=== PATIENT | female | born 1965 | race Caucasian/White ===

== ENCOUNTER 2020-06-25 13:49 | Emergency (ER) | payer OTHER, SELFPAY ==
--- NOTE | ~2020-06-25 | XR_ITS ---
EXAMINATION: XR ANKLE, RIGHT XR FOOT, RIGHT CLINICAL INFORMATION: Pain ankle and foot COMPARISON: None TECHNIQUE: 2 views right ankle, 2 views right foot, and a combined lateral view of the ankle and foot are obtained for a total of 5 views. FINDINGS: The malleoli are intact and the ankle mortise is symmetric. The talar dome shows no osteochondral lesion. The tibiotalar joint shows no narrowing or erosive change. No visible ankle capsular effusion. The retrocalcaneal recess is preserved. The subtalar joint appears normal. The midfoot is unremarkable with no fracture or dislocation. There is hallux valgus and degenerative changes involving the first MTP with medial bunion. Forefoot shows no fracture. The toes are flexed and overlapping on the lateral view, difficult to assess for subluxation. There are variable degenerative changes PIP and DIP joints. XR/XR foot RT 2V IMPRESSION: 1. No ankle fracture or dislocation. No visible capsular effusion. 2. Hallux valgus and bunion first MTP. 3. Degenerative changes PIP and DIP joints. Toes flexed and overlapping on lateral view, difficult to assess for subluxation. Recommend correlation with symptoms and clinical exam.
--- NOTE | ~2020-06-25 | XR_ITS ---
EXAMINATION: XR ANKLE, RIGHT XR FOOT, RIGHT CLINICAL INFORMATION: Pain ankle and foot COMPARISON: None TECHNIQUE: 2 views right ankle, 2 views right foot, and a combined lateral view of the ankle and foot are obtained for a total of 5 views. FINDINGS: The malleoli are intact and the ankle mortise is symmetric. The talar dome shows no osteochondral lesion. The tibiotalar joint shows no narrowing or erosive change. No visible ankle capsular effusion. The retrocalcaneal recess is preserved. The subtalar joint appears normal. The midfoot is unremarkable with no fracture or dislocation. There is hallux valgus and degenerative changes involving the first MTP with medial bunion. Forefoot shows no fracture. The toes are flexed and overlapping on the lateral view, difficult to assess for subluxation. There are variable degenerative changes PIP and DIP joints. XR/XR ankle RT 2V IMPRESSION: 1. No ankle fracture or dislocation. No visible capsular effusion. 2. Hallux valgus and bunion first MTP. 3. Degenerative changes PIP and DIP joints. Toes flexed and overlapping on lateral view, difficult to assess for subluxation. Recommend correlation with symptoms and clinical exam.
[2020-06-25 14:16] VITALS: BP 153/83; PULSE 80; RESP 18; TEMP 36.5; O2SAT 100; BMI 24.2
[2020-06-25] MEDS: Acetaminophen 325 MG TABLET 650 MG PO (15:18)
--- NOTE | 2020-06-25 15:24 | PC.NURSE ---
EVGENY WRAP APPLIED TO RIGHT ANKLE/FOOT. PT TOLERATING WELL. PT REFUSING CRUTCHES AT THIS TIME.
--- NOTE | 2020-06-25 15:52 | ED.LOWEXIN ---
HPI - Extremity Injury (Lower) General Chief Complaint: Extremity Injury, Lower Stated Complaint: RFOOT INJ Time Seen by Provider: 06/25/20 14:27 Source: patient Mode of arrival: ambulatory Limitations: no limitations History of Present Illness HPI Narrative: Patient presents to ED for right foot injury. Patient states she stood up from the couch and twisted her right ankle. Patient denies falling to the ground or hitting head. Patient denies any blunt trauma to right lower extremity Related Data Previous Rx's Medication Instructions Recorded naproxen 500 mg PO BID PRN #20 tab 06/25/20 Allergies Allergy/AdvReac Type Severity Reaction Status Date / Time codeine Allergy Itching Verified 06/25/20 14:16 erythromycin base Allergy Rash Verified 06/25/20 14:16 Latex, Natural Rubber Allergy Rash Verified 06/25/20 14:16 Penicillins Allergy Rash Verified 06/25/20 14:16 Review of Systems Review of Systems: Yes all other systems are reviewed and are negative Constitutional: Constitutional: Reports as per HPI and Reports no additional constitutional complaints Eyes: Eyes: Reports as per HPI and Reports no additional eye complaints ENT: Reports system reviewed and no additional complaints, except as documented and Reports as per HPI Cardiovascular: Cardiovascular: Reports as per HPI and Reports no additional cardiovascular complaints Respiratory: Respiratory: Reports as per HPI and Reports no additional respiratory complaints Gastrointestinal: Gastrointestinal: Reports as per HPI and Reports no additional gastrointestinal complaints Genitourinary: Genitourinary: Reports no additional female genitourinary complaints and Reports as per HPI Musculoskeletal: Musculoskeletal: Reports no additional musculoskeletal complaints, Reports as per HPI and Reports arthralgias (Right ankle pain) Neurologic: Reports system reviewed and no additional complaints, except as documented and Reports as per HPI Psychiatric: Psychiatric: Reports no additional psychiatric complaints and Reports as per HPI [facility] Past Medical History Medical History (Updated 06/25/20 @ 15:56 by SHON Castillo) Asthma HTN (hypertension) Migraines Social History Social History Advance Directives: No Advance Directives Information Provided: Yes Physical Exam Vital Signs: Vital Signs: Last Vital Signs Temp 97.7 F 06/25/20 14:16 Pulse 80 06/25/20 14:16 Resp 18 06/25/20 15:58 BP 153/83 H 06/25/20 14:16 Pulse Ox 100 06/25/20 14:16 Body Mass Index 24.2 Const: General: cooperative, healthy appearing, comfortable, no acute distress, well developed, alert and awake Orientation/consciousness: patient oriented x3 HENMT: Head: Yes normal to inspection, Yes No palpable skull fracture present, Yes normocephalic and Yes atraumatic Eyes: General: appearance normal, both eyes and all related structures Neck: Neck: Yes normal visual inspection, Yes full ROM, Yes no lymphadenopathy, Yes no meningeal signs, Yes trachea midline, Yes supple and No tender Chest: Chest palpation & inspection: normal inspection of the chest and normal palpation of entire chest wall Resp: Effort & Inspection: normal respiratory effort and able to speak in complete sentences Cardio: Jugular venous distension: no JVD Heart sounds: S1 normal heart sound present and S2 normal heart sound present GI: Inspection: Yes normal to inspection and No abdominal wall ecchymosis Palpation (GI): Soft to palpation, not firm, nontender, no guarding and not rigid : General: No CVA tenderness Back/Spine/Pelvis: Back: no CVA tenderness, No CVA tenderness and No back tenderness Skin: General skin exam: no rashes or lesions noted and elasticity normal Neuro: General: patient oriented x3, no meningeal signs and CN's II-XI intact bilaterally Cranial nerves: Yes CN's II-XII intact bilaterally Extrem: Other: Right lower extremity pain; right ankle pain on palpation. Negative for deformities. Pedal pulses intact. Achilles is intact. Patient able to walk on foot due to pain. Psych: Appearance: grossly normal, well kempt and not disheveled Course Course Course Narrative: Patient will be sent for right foot/ankle x-ray. Reevaluation(s) Reevaluation #1: Ankle/foot x-ray negative for fractures. Patient requested Tylenol. Patient placed in Skyler wrap and crutches MDM - Extremity Injury (Lower) MDM Narrative Medical decision making narrative: ankle sprain Discharge Plan Discharge Clinical Impression: Ankle sprain and strain Patient Disposition: Home, Self-Care Instructions: Ankle Sprain (ED) Additional Instructions: Return to the ED immediately swelling of lower extremity, bluish discoloration of toes, calf pain, redness, blistering of legs, chest pain, shortness of breath, fever, chills, paralysis, or any other concerning symptoms. Please follow-up with PCP Prescriptions: New naproxen 500 mg tablet 500 mg PO BID PRN (Reason: pain) Qty: 20 RF: 0 Stand Alone Forms: Work/School Release Interventions: ED Discharge Assessment Last Done: 06/25/20 16:03 Discharge Date/Time: 06/25/20 16:04 Print Language: Latvian
[2020-06-25 15:58] VITALS: RESP 18
== END 2020-06-25 16:04 | disposition home or self-care (01) ==
PROVIDERS: Emergency Provider Emergency Medicine; PCP Family Medicine
DX: S93.401A Sprain of unspecified ligament of right ankle, initial encounter (principal); M25.571 Pain in right ankle and joints of right foot; I10 Essential (primary) hypertension; W50.2XXA Accidental twist by another person, initial encounter; Y93.9 Activity, unspecified; Y92.009 Unspecified place in unspecified non-institutional (private) residence as the place of occurrence of the external cause; Y99.9 Unspecified external cause status; Z79.899 Other long term (current) drug therapy
CPT/HCPCS: 73600; 73620; 99283

== ENCOUNTER 2022-10-08 23:52 | Emergency (ER) | payer MEDICAID, SELFPAY ==
[2022-10-09 00:07] VITALS: BP 177/97; PULSE 95; RESP 18; TEMP 37.1; O2SAT 95; BMI 20.4
== END 2022-10-09 06:38 | disposition home or self-care (01) ==
PROVIDERS: Emergency Provider Internal Medicine
DX: S61.250A Open bite of right index finger without damage to nail, initial encounter (principal); W55.51XA Bitten by raccoon, initial encounter; Y93.89 Activity, other specified; Y92.038 Other place in apartment as the place of occurrence of the external cause; Y99.9 Unspecified external cause status; Z20.3 Contact with and (suspected) exposure to rabies
CPT/HCPCS: 90471; 90472; 96372; 99281; 99284

== ENCOUNTER 2023-01-07 12:51 | Emergency (ER) | payer MEDICAID, SELFPAY ==
--- NOTE | ~2023-01-07 | XR_ITS ---
EXAMINATION: XR KNEE, LEFT CLINICAL INFORMATION: Pain after falling COMPARISON: None available. TECHNIQUE: Four views of the left knee. FINDINGS: There is medial and lateral joint space meniscal calcification. No fracture, dislocation or destructive process. No joint effusion. XR/XR knee LT 3V IMPRESSION: Degenerative change noted. No fracture.
--- NOTE | ~2023-01-07 | CT_ITS ---
EXAMINATION: CT SCAN OF THE LEFT LOWER LEG WITHOUT CONTRAST CLINICAL INFORMATION: Evaluate for distal tibia fracture. Fall. COMPARISON: X-ray of the left ankle 01/07/2023. TECHNIQUE: CT scan of the left lower extremity/tibia-fibula was performed without contrast with reconstruction imaging performed at the acquisition workstation. This CT examination was performed using dose optimization techniques as appropriate, variously including the following: *Automated exposure control *Adjustment of mA and/or kV according to patient size (this includes techniques or standardized protocols for targeted exams where dose is matched to indication/reason for exam; i.e. extremities or head) *Use of iterative reconstruction technique FINDINGS: FIBULA: There is a nondisplaced oblique fracture involving the distal 3.5 cm of the fibula extending proximally from the level of the mortise. TIBIA: There is a small minimally displaced and rotated intra-articular fragment arising from the anterolateral tibial plafond extending to the articular surface. The fragment measures 9 mm craniocaudal, 6 mm AP and 3 mm transverse. The fragment is displaced approximately 2 mm anterolaterally. No additional fractures. There is stranding in the subcutaneous soft tissues of the upper and lower leg and ankle compatible with edema. There is some image degrading motion artifact in the upper portion of the lower leg. There is chondrocalcinosis in the knee. There is atrophy and fatty infiltration of the medial head of the gastrocnemius. CT/CT lower leg LT wo IV con IMPRESSION: 1. Nondisplaced oblique fracture of the distal fibula. 2. Small minimally displaced intra-articular fracture of the anterolateral tibial plafond. 3. Atrophy and fatty infiltration of the medial head of the gastrocnemius.
--- NOTE | ~2023-01-07 | XR_ITS ---
EXAMINATION: XR ANKLE, RIGHT CLINICAL INFORMATION: Fall. Injury. Pain. COMPARISON: None available. TECHNIQUE: AP, lateral, and mortise views of the right ankle. FINDINGS: The bone mineralization is normal. There is no fracture. The joint spaces are maintained. There is mild to moderate anterolateral soft tissue swelling. XR/XR ankle RT 2V IMPRESSION: No acute osseous abnormality. Mild to moderate anterolateral soft tissue swelling.
--- NOTE | ~2023-01-07 | XR_ITS ---
EXAMINATION: XR FOOT, RIGHT CLINICAL INFORMATION: Pain; question fracture. COMPARISON: Right foot radiographs dated 06/25/2020. TECHNIQUE: AP, lateral, and oblique views of the right foot. FINDINGS: Bony alignment and mineralization are normal. There is an oblique, mildly displaced fracture noted of the distal shaft of the right fifth metatarsal bone. No dislocation or right ankle joint effusion is seen. Boehler's angle is normal. There is no calcaneal spur. There is slight bunion formation of the first metatarsal head. There is degenerative change of the proximal and distal interphalangeal joints of the second toe. No abnormal bone erosion is seen. There is mild soft tissue swelling of the lateral forefoot, adjacent to the fracture. No soft tissue gas or foreign body is seen. XR/XR foot RT 2V IMPRESSION: A mildly displaced fracture is seen of the distal shaft of the right fifth metatarsal bone.
--- NOTE | ~2023-01-07 | XR_ITS ---
EXAMINATION: XR ANKLE, LEFT CLINICAL INFORMATION: Fall. Pain. COMPARISON: None available. TECHNIQUE: AP, lateral, and mortise views of the left ankle. FINDINGS: The bone mineralization is within normal limits. There is an apparent lucency through the lateral fibular notch of the distal tibia. There is mild to moderate lateral soft tissue swelling. XR/XR ankle LT 2V IMPRESSION: There is a lucency seen through the lateral distal tibial in the region of the fibular notch only seen on one image. An undisplaced fracture in this region is a consideration. CT scan may be helpful. There is lateral soft tissue swelling.
[2023-01-07 13:20] VITALS: BP 160/64; PULSE 85; RESP 16; TEMP 36.6; O2SAT 98; BMI 21.8
--- NOTE | 2023-01-07 13:21 | ED_ITS ---
HPI - Extremity Injury (Lower) General Chief Complaint: Extremity Injury, Lower Stated Complaint: R/L Ankle Injury S/P Fall 01/05/23 Time Seen by Provider: 01/07/23 13:35 Source: patient Mode of arrival: ambulatory Limitations: no limitations History of Present Illness HPI Narrative: 57 yol female with pmh of HTN and migraines presetns to the ED for bilateral ankle pain and left knee pain after falling and twisting both ankles. patient fell down stairs unto her back and twisted bilateral lower extremities. Patient denies hitting head, loss of consciousness, chest pain, shortness of breath, abdominal pain, rectal bleeding, dizziness since fall periord. patient states denies being on any blood thinders. Related Data Home Medications Medication Instructions Recorded Confirmed aripiprazole 10 mg tablet 10 mg PO DAILY 01/07/23 01/07/23 aripiprazole 2 mg tablet 2 mg PO DAILY 01/07/23 01/07/23 nzssbwwqzf-qyzbxevvasmpk-levgulyy 1 tab PO Q4H PRN Headache 01/07/23 01/07/23 50 mg-325 mg-40 mg tablet cetirizine 10 mg tablet 10 mg PO DAILY 01/07/23 01/07/23 dextroamphetamine-amphetamine 20 1 tab PO BID 01/07/23 01/07/23 mg tablet erenumab-aooe 70 mg/mL 70 mg subcut QMONTH 01/07/23 01/07/23 subcutaneous auto-injector (Aimovig Autoinjector) gabapentin 800 mg tablet 2,400 mg PO BID 01/07/23 01/07/23 hydrochlorothiazide 25 mg tablet 25 mg PO DAILY 01/07/23 01/07/23 ibuprofen 600 mg tablet 600 mg PO TID 01/07/23 01/07/23 lamotrigine 200 mg tablet 600 mg PO BEDTIME 01/07/23 01/07/23 lorazepam 0.5 mg tablet 0.5 mg PO BEDTIME PRN Anxiety 01/07/23 01/07/23 methylphenidate HCl 20 mg tablet 20 mg PO BID 01/07/23 01/07/23 minocycline 50 mg capsule 50 mg PO BID 01/07/23 01/07/23 montelukast 10 mg tablet 10 mg PO DAILY 01/07/23 01/07/23 omeprazole 40 mg capsule,delayed 40 mg PO DAILY 01/07/23 01/07/23 release ondansetron HCl 8 mg tablet 8 mg PO Q8H PRN Nausea And Vomiting 01/07/23 01/07/23 prochlorperazine maleate 10 mg 10 mg PO Q6H PRN migraine 01/07/23 01/07/23 tablet sumatriptan succinate 100 mg tablet 100 mg PO NEEDED 01/07/23 01/07/23 sumatriptan succinate 6 mg/0.5 mL 6 mg subcut NEEDED 01/07/23 01/07/23 subcutaneous pen injector topiramate 100 mg tablet 200 mg PO BID 01/07/23 01/07/23 trazodone 150 mg tablet 150 - 300 mg PO BEDTIME PRN 01/07/23 01/07/23 Insomnia venlafaxine 150 mg 300 mg PO DAILY 01/07/23 01/07/23 capsule,extended release 24 hr Previous Rx's Medication Instructions Recorded naproxen 500 mg tablet 500 mg PO BID PRN pain #20 tabs 06/25/20 ketorolac 10 mg tablet 10 mg PO QID PRN pain 5 days #20 01/07/23 tabs Allergies Allergy/AdvReac Type Severity Reaction Status Date / Time codeine Allergy Itching Verified 01/07/23 13:20 erythromycin base Allergy Rash Verified 01/07/23 13:20 Latex, Natural Rubber Allergy Rash Verified 01/07/23 13:20 Penicillins Allergy Rash Verified 01/07/23 13:20 Review of Systems 2 Review of Systems: Fall with bilateral lower extremitey ankle pain and left kne pain after fall Yes all other systems are reviewed and are negative [facility] Past Medical History Medical History (Updated 01/07/23 @ 22:06 by Gladys Moilna CNP) Migraines Asthma HTN (hypertension) Social History Smoked in Last 30 Days: No Advance Directives: No Advance Directives Information Provided: No Physical Exam 2 Vital Signs: Vital Signs: Last Vital Signs Temp 98.3 F 01/07/23 22:34 Pulse 73 01/07/23 22:34 Resp 18 01/07/23 22:34 BP 186/70 H 01/07/23 22:34 Pulse Ox 96 01/07/23 22:34 O2 Del Method Room Air 01/07/23 22:34 BMI result Body Mass Index 21.8 Const: General: cooperative, healthy appearing, comfortable, no acute distress, well developed, alert, awake and Physically active O rientation/consciousness: oriented to person, oriented to place, oriented to time and patient oriented x3 HEENT: Head: Yes normal to inspection, Yes No palpable skull fracture present, Yes normocephalic and Yes atraumatic Ears: hearing grossly normal bilaterally, external ears normal, TM's normal bilaterally, TM normal on the right, TM normal on the left, EAC's normal, mastoids normal and no periauricular adenopathy Throat: Yes posterior oropharynx normal, Yes tonsils normal and Yes uvula midline Eyes: General: appearance normal, both eyes and all related structures Neck: Neck: Yes normal visual inspection, Yes full ROM, Yes no lymphadenopathy, Yes no meningeal signs, Yes trachea midline, Yes supple, No anterior neck swelling and No tender Chest: Chest palpation & inspection: normal inspection of the chest and normal palpation of entire chest wall Resp: Effort & Inspection: normal respiratory effort and able to speak in complete sentences Auscultation: clear to auscultation bilaterally Cardio: Jugular venous distension: no JVD Heart sounds: S1 normal heart sound present and S2 normal heart sound present GI: Inspection: Yes normal to inspection Palpation (GI): Soft to palpation, not firm, nontender, no guarding and not rigid : General: No CVA tenderness and Yes no CVA tenderness Back/Spine/Pelvis: Back: no CVA tenderness, No CVA tenderness and No back tenderness Skin: General skin exam: no rashes or lesions noted, elasticity normal and turgor normal Neuro: General: oriented to person, oriented to place, oriented to time, patient oriented x3, gait normal, tone normal, moves all extremities, Normal light touch and pain sensation, no meningeal signs, no focal motor deficits, CN's II-XI intact bilaterally and normal sensation to monofilament Extrem: Knee images: 1. positive for tenderness on palpation. Negative for crepitus, ecchymosis, deformity, or elasticity. Motor neurovascular exam intact. Ankle/foot/toe images: 1. positive for tenderness on palpation. Positive for ecchymosis. Negative for crepitus or obvious deformity. Vascular/ neuro exam intact. Motor exam intact but limited due to pain 2. positive for tenderness on palpation . Positive for ecchymosis. Negative for crepitus or obvious deformity. Vascular/ neuro exam intact. Motor exam intact but limited due to pain Psych: Appearance: grossly normal, well kempt and not disheveled Course Course Course Narrative: This is a rapid medical exam. Defer additional HPI, ROS, PE to primary provider. 57yo female w/ history of migraines, asthma here after slip and fall down 4 stairs on Thursday-here with left knee pain, b/l ankle pain. No head strike or LOC. NO AC therapy. Will obtain x-rays VSS Reevaluation(s) Reevaluation #1: XR/XR foot RT 2V IMPRESSION: A mildly displaced fracture is seen of the distal shaft of the right fifth metatarsal bone. Patient placed in a posterior splint to the RIGHT lower extremity, this coupled with her left lower extremity fracture and splinting, nonweightbearing status at this time. She is placed in position observation so that case management/physical therapy evaluation can ensue, likely will require placement at short-term rehab and follow up with Orthopedics. She was placed in a posterior short-leg splint on the right and remained neurovascularly intact distally after application. Medications Administered Discontinued Medications Generic Name Dose Route Start Last Admin Trade Name Freq PRN Reason Stop Dose Admin Ketorolac Tromethamine 30 mg 01/07/23 18:56 01/07/23 18:59 Ketorolac Tromethamine 30 Mg/Ml Vial IM 01/07/23 18:57 30 mg ONCE ONE Administration Morphine Sulfate 15 mg 01/07/23 23:38 01/07/23 23:53 Morphine Sulfate Immed Release 15 Mg Tablet PO 01/07/23 23:39 15 mg ONCE ONE Administration Medical Decision Making Medical Decision Making [facility] Narrative: 57-year-old female with bilateral ankle pain and left foot pain after falling down stairs on Thursday. Patient has been walking for the past 3 days. Patient denies hitting head or loss of consciousness. Patient denies any chest pain abdominal pain flank pain weakness dizziness bloody urine, blood in stool, vomiting blood since fall. Whole-body examined. Patient left lower extremity positive for distal tibial a nondisplaced oblique fracture and small right tibial fracture. Patient placed in posterior splint. Neurovascular exam intact after splint placement. Case discussed with orthopedic PA tomorrow who states patient could be discharged. Right ankle negative for fracture waiting for right foot x-ray. Signed out to SHERI Graham Differential Diagnosis Differential Diagnoses: The differential diagnosis associated with the presentation includes ( Ankle fracture foot fracture, knee dislocation knee fracture.) Admission/Observation Consideration of admission/observation: Escalation of care including admission/observation considered Consult Healthcare Provider Management of the patient was discussed with: [employer] Worker ( [facility]) Independent Interpretation I performed an independent interpretation of an: Plain X-Ray and CT Scan Radiology Impression Discussion of test interpretation with radiology: I have reviewed the radiologist's reading. Procedures Orthopedic Splinting/Casting Injury #1: Side: right Lower Extremity Injury Location: foot Lower Extremity Immobilizer: posterior splint Injury #2: Side: left Lower Extremity Injury Location: lower leg and ankle Lower Extremity Immobilizer: posterior splint Discharge Plan Discharge Clinical Impression: Fracture of left leg Fracture of 5th metatarsal Qualifiers: Encounter type: initial encounter Fracture type: closed Laterality: right Patient Disposition: Still a Patient Instructions: Leg Fracture (ED) Additional Instructions: you need to follow-up with orthopedic surgeon. Return to the ED for worsening pain, purple blue black discoloration of toes, leg swelling, calf pain, chest pain, shortness of breath, or any other concerning symptoms. Do not take any other NSAIDS while taking Ketorolac. Prescriptions: New ketorolac 10 mg tablet 10 mg PO QID PRN (Reason: pain) 5 Days Qty: 20 0RF Rx Instructions: Received 30mg IM toradol in the ED No Action naproxen 500 mg tablet 500 mg PO BID PRN (Reason: pain) Qty: 20 0RF lamotrigine 200 mg tablet 600 mg PO BEDTIME cetirizine 10 mg tablet 10 mg PO DAILY sumatriptan succinate 100 mg tablet 100 mg PO NEEDED methylphenidate HCl 20 mg tablet 20 mg PO BID ondansetron HCl 8 mg tablet 8 mg PO Q8H PRN (Reason: Nausea And Vomiting) venlafaxine 150 mg capsule,extended release 24hr 300 mg PO DAILY prochlorperazine maleate 10 mg tablet 10 mg PO Q6H PRN (Reason: migraine) omeprazole 40 mg capsule,delayed release(DR/EC) 40 mg PO DAILY kkurmtenvu-ympjagnasybax-xebu 50-325-40 mg tablet 1 tab PO Q4H PRN (Reason: Headache) lorazepam 0.5 mg tablet 0.5 mg PO BEDTIME PRN (Reason: Anxiety) gabapentin 800 mg tablet 2,400 mg PO BID trazodone 150 mg tablet 150 - 300 mg PO BEDTIME PRN (Reason: Insomnia) dextroamphetamine-amphetamine 20 mg tablet 1 tab PO BID minocycline 50 mg capsule 50 mg PO BID montelukast 10 mg tablet 10 mg PO DAILY hydrochlorothiazide 25 mg tablet 25 mg PO DAILY ibuprofen 600 mg tablet 600 mg PO TID topiramate 100 mg tablet 200 mg PO BID aripiprazole 10 mg tablet 10 mg PO DAILY aripiprazole 2 mg tablet 2 mg PO DAILY Aimovig Autoinjector 70 mg/mL auto-injector 70 mg subcut QMONTH sumatriptan succinate 6 mg/0.5 mL pen injector 6 mg subcut NEEDED Referrals: [facility] [Provider Group] (LEg fracture) Print Language: Maltese
[2023-01-07 17:17] VITALS: BP 159/63; PULSE 79; RESP 18; TEMP 37.3; O2SAT 97
[2023-01-07] MEDS: Ketorolac Tromethamine 30 MG/ML VIAL IM (18:59)
--- NOTE | 2023-01-07 19:46 | PC.NURSE ---
splint applied by PA
[2023-01-07 22:34] VITALS: BP 186/70; PULSE 73; RESP 18; TEMP 36.8; O2SAT 96
--- NOTE | 2023-01-07 22:38 | MHC.EDTECH ---
Patient bed changed and patient used commode
--- NOTE | 2023-01-07 23:01 | PC.NURSE ---
Med req completed
[2023-01-07] MEDS: Morphine Sulfate Immed Release 15 MG TABLET PO (23:53)
--- NOTE | 2023-01-07 23:54 | PC.NURSE ---
Right foot, lower leg splint applied by MLP. Pt tolerated well.
--- NOTE | 2023-01-08 00:45 | PC.NURSE ---
Assumed care of patient at 00:25. Patient is alert and oriented x5. Patient is able to make her needs known. Patient c/o pain in left lower leg and right foot 8/10 at present. Patient transferred into a hospital bed, purewick applied. Patient oriented to room, call hermosillo placed within patient's reach. Plan of care ongoing.
[2023-01-08] MEDS: Morphine Sulfate Immed Release 15 MG TABLET PO ×3 (02:44→15:48)
[2023-01-08 08:17] VITALS: BP 186/84; PULSE 70; RESP 16; TEMP 36.7; O2SAT 96
--- NOTE | 2023-01-08 12:56 | PC.NURSE ---
PT TO BE SEEN TOMORROW BY PHYS THERAPY. PHARMACY CONTACTED FOR HOME MED REVIEW.
--- NOTE | 2023-01-08 13:38 | PHA.MEDREC ---
Pharmacy Consult ? Medication Reconciliation Called [facility] and spoke with RN. She asked patient regarding HCTZ and Minocycline . Patient states she is currently taking both meds. Pharmacy has completed the medication reconciliation.
[2023-01-08 14:00] VITALS: BP 218/92; PULSE 76; RESP 18; TEMP 36.7; O2SAT 96
--- NOTE | 2023-01-08 14:16 | MHC.CM.PN ---
Patient in ED over, will need a PT eval for placement. PT is not available today due to the holiday. Patient remains in overflow, room 4.
[2023-01-08] MEDS: Ibuprofen 600 MG TABLET PO ×2 (14:33→21:32)
[2023-01-08 19:58] VITALS: BP 193/86; PULSE 68; RESP 14; TEMP 36.2; O2SAT 97
[2023-01-08] MEDS: Gabapentin 600 MG TABLET 2400 MG PO (20:18)
[2023-01-08] MEDS: Topiramate 100 MG TABLET 200 MG PO (20:19)
[2023-01-08] MEDS: LORazepam 0.5 MG TABLET PO (20:19)
--- NOTE | 2023-01-08 21:01 | PC.NURSE ---
Acquired care at 1930. Pt BP was 193/86. ED provider notified via tiger text. No new order placed.
[2023-01-08] MEDS: traZODone HCL 50 MG TABLET 150 MG PO (21:32)
[2023-01-08] MEDS: hydroCHLOROthiazide 25 MG TABLET PO (21:32)
[2023-01-08] MEDS: Ondansetron ODT 8 MG TAB.RAPDIS TRANSLINGU (22:35)
[2023-01-08 22:47] VITALS: BP 201/88; BP 207/77; PULSE 68; RESP 20; O2SAT 98
[2023-01-09] MEDS: Omeprazole 40 MG CAPSULE.DR PO (05:33)
[2023-01-09 05:46] VITALS: BP 144/89; PULSE 85; RESP 18; TEMP 36.8; O2SAT 95
[2023-01-09] MEDS: Ibuprofen 600 MG TABLET PO ×3 (09:25→21:36)
[2023-01-09] MEDS: Gabapentin 600 MG TABLET 2400 MG PO ×2 (09:25→21:37)
[2023-01-09] MEDS: Venlafaxine HCl ER 150 MG CAP.ER.24H 300 MG PO (09:26)
[2023-01-09] MEDS: Topiramate 100 MG TABLET 200 MG PO ×2 (09:27→21:34)
[2023-01-09] MEDS: Montelukast Sodium 10 MG TABLET PO (09:27)
[2023-01-09] MEDS: hydroCHLOROthiazide 25 MG TABLET PO (09:27)
[2023-01-09] MEDS: Loratadine 10 MG TABLET PO (09:27)
[2023-01-09 09:29] VITALS: BP 172/95; PULSE 100; O2SAT 95
[2023-01-09] MEDS: Methylphenidate HCl 10 MG TABLET 20 MG PO (10:25)
[2023-01-09] MEDS: ARIPiprazole 10 MG TABLET PO (10:26)
[2023-01-09] MEDS: ARIPiprazole 2 MG TABLET PO (10:26)
[2023-01-09] MEDS: Amphetamine Mixed Salts 20 MG TABLET PO (11:34)
[2023-01-09 13:28] VITALS: BP 172/95; PULSE 100; O2SAT 95
--- NOTE | 2023-01-09 13:28 | PC.NURSE ---
physical therapy met with patient for daily PT, physical therapist spoke with SHON Morillo (ortho), request to change patient from splint to walking boot for weight bearing PT. Meredith, SELIN placing boot at this time
--- NOTE | 2023-01-09 14:20 | MHC.CM.PN ---
Received CM consult and met with patient at bedside. Patient from home with roommate, who is frequently not home. 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 Has nebulizer. PCP: Vicente Tolentino HCP: CM assisted with completing, patient named son John as agent, phone # [phone] DP: PT recommended acute rehab, patient initially declined but is now agreeable, referrals placed, will need BLS. CM will continue to follow.
[2023-01-09 20:00] VITALS: BP 192/96; PULSE 100; RESP 16; TEMP 36.8; O2SAT 98
[2023-01-09 20:09] LABS: COVID-19 Test Negative (Negative); IDNOW Serial# 9DB6401D
[2023-01-09] MEDS: lamoTRIgine 100 MG TABLET 600 MG PO (21:34)
--- NOTE | 2023-01-09 21:39 | PC.NURSE ---
This verse writer assumed care of this Pt at 1900. Pt A&Ox4, reports bilateral leg pain, with right leg being the worse. Pt medicated per MAR, refused Ritalin and adderal, states I take those during the day and I am just relaxing . Pt ambulating independently with walker.
[2023-01-10] MEDS: traZODone HCL 50 MG TABLET 150 MG PO (00:22)
[2023-01-10] MEDS: Morphine Sulfate Immed Release 15 MG TABLET PO ×3 (00:22→21:05)
--- NOTE | 2023-01-10 03:20 | PC.NURSE ---
Pt appears to be sleeping at this time, equal, non labored respirations, no apparent distress.
[2023-01-10 05:58] VITALS: BP 101/57; PULSE 73; RESP 16; TEMP 36.1; O2SAT 96
--- NOTE | 2023-01-10 05:58 | MHC.EDTECH ---
Patient slept all night ,up to bedside commode once ,void and back to bed ,vitals taken .
[2023-01-10] MEDS: Omeprazole 40 MG CAPSULE.DR PO (06:33)
[2023-01-10] MEDS: Ibuprofen 600 MG TABLET PO ×3 (08:32→21:04)
[2023-01-10] MEDS: Venlafaxine HCl ER 150 MG CAP.ER.24H 300 MG PO (08:32)
[2023-01-10] MEDS: Topiramate 100 MG TABLET 200 MG PO ×2 (08:33→21:23)
[2023-01-10] MEDS: Loratadine 10 MG TABLET PO (08:33)
[2023-01-10] MEDS: Montelukast Sodium 10 MG TABLET PO (08:33)
[2023-01-10] MEDS: Amphetamine Mixed Salts 20 MG TABLET PO ×2 (08:33→21:23)
[2023-01-10] MEDS: hydroCHLOROthiazide 25 MG TABLET PO (08:33)
[2023-01-10] MEDS: Methylphenidate HCl 10 MG TABLET 20 MG PO ×2 (08:33→21:04)
[2023-01-10] MEDS: Gabapentin 600 MG TABLET 2400 MG PO ×2 (08:33→21:03)
[2023-01-10] MEDS: ARIPiprazole 10 MG TABLET PO (10:23)
[2023-01-10] MEDS: ARIPiprazole 2 MG TABLET PO (10:23)
--- NOTE | 2023-01-10 13:20 | PC.NURSE ---
Patient alert and oriented x3. Patient reports bilateral lower leg pain 9/10 R>L. L leg splinted with +CMS, per patient minimal sensation but has been like that since incident, 2+ edema noted and +doppler on L foot. R leg mild swelling noted around ankle. No cast while in bed, walking boot at bedside. Pain controlled with scheduled meds and morphine PRN. OOB to commode. VSS. All needs met.
[2023-01-10 13:55] VITALS: BP 120/61; PULSE 77; RESP 16; TEMP 36.8; O2SAT 96
--- NOTE | 2023-01-10 15:40 | MHC.CM.ED ---
Patient remains in ER overflow. Aware acute rehab is not able to offer a bed. Patient agreeable to STR. Facility choices: 1) [facility] 2) [facility] 3) [facility]. Referral made via [employer]. Will need ins auth which would not be able to be obtained before Thursday. Continue to monitor for d/c needs.
[2023-01-10 15:57] VITALS: BP 121/63; PULSE 89; RESP 16; TEMP 36.8; O2SAT 98
--- NOTE | 2023-01-10 16:01 | MHC.EDTECH ---
This pct assumed care of pt at 1500 ,vitals taken ,Pt in great sprits we talk for awhile.
--- NOTE | 2023-01-10 19:06 | MHC.EDTECH ---
Patient did not void since i got here at 1500 ,bladder scan done at 1900 ,Pt had 248 ml ,RN Hesham aware .
[2023-01-10 20:00] VITALS: BP 108/56; PULSE 85; RESP 18; TEMP 36.7; O2SAT 97
--- NOTE | 2023-01-10 21:03 | MHC.EDTECH ---
1999 ,rounding done ,vitals taken ,pt use bedside commode ,void was empty ,no bowel movement ,Patient off offer to wash up ,towel and clean gown and pants given ,snack offer ,pt had a turkey sandwich with ice water ,Call hermosillo within Pt reach .
[2023-01-10] MEDS: lamoTRIgine 100 MG TABLET 600 MG PO (21:18)
--- NOTE | 2023-01-10 22:20 | PC.NURSE ---
pt assessed after medications Per MAR, pt reported tolerable 4/10 pain, will cont to monitor
[2023-01-11] MEDS: Omeprazole 40 MG CAPSULE.DR PO (05:39)
[2023-01-11] MEDS: Morphine Sulfate Immed Release 15 MG TABLET PO ×3 (05:39→21:50)
[2023-01-11 06:00] VITALS: BP 112/55; PULSE 76; RESP 16; TEMP 37.1; O2SAT 92
--- NOTE | 2023-01-11 06:18 | PC.NURSE ---
pt assessed, reported 10/10 pain, medicated pt per MAR for pain. pt observed 40 minutes, pt observed sleeping
--- NOTE | 2023-01-11 07:00 | PC.NURSE ---
Assumed care of patient at this time.
[2023-01-11] MEDS: Venlafaxine HCl ER 150 MG CAP.ER.24H 300 MG PO (08:53)
[2023-01-11] MEDS: ARIPiprazole 10 MG TABLET PO (08:53)
[2023-01-11] MEDS: Gabapentin 600 MG TABLET 2400 MG PO ×2 (08:53→21:49)
[2023-01-11] MEDS: Ibuprofen 600 MG TABLET PO ×3 (08:53→21:50)
[2023-01-11] MEDS: Montelukast Sodium 10 MG TABLET PO (08:53)
[2023-01-11] MEDS: ARIPiprazole 2 MG TABLET PO (08:53)
[2023-01-11] MEDS: Methylphenidate HCl 10 MG TABLET 20 MG PO (08:53)
[2023-01-11] MEDS: Topiramate 100 MG TABLET 200 MG PO ×2 (08:53→21:50)
[2023-01-11] MEDS: Loratadine 10 MG TABLET PO (08:53)
[2023-01-11] MEDS: Amphetamine Mixed Salts 20 MG TABLET PO (08:53)
[2023-01-11] MEDS: hydroCHLOROthiazide 25 MG TABLET PO (08:53)
[2023-01-11 14:00] VITALS: BP 119/61; PULSE 80; RESP 17; TEMP 36.1
--- NOTE | 2023-01-11 14:43 | MHC.CM.ED ---
Review of SNF search notes no offers. Search expanded - unknown payor contracted facilities - will await determination. Pt updated on broad search expansio. ED CM to follow.
--- NOTE | 2023-01-11 15:16 | PC.NURSE ---
This RN assumes care for this patient. Received nurse to nurse report from Lexis SOLANO.
--- NOTE | 2023-01-11 15:43 | PC.NURSE ---
Pt states I've just been having a hard day. I'm drowsy, I can't keep my eyes open, this pad is wet . Changed linens. Pt is sitting upright at this time, watching TV. Appears comfortable at this time. Provider (Noam MENENDEZ) aware.
[2023-01-11] MEDS: lamoTRIgine 100 MG TABLET 600 MG PO (21:49)
[2023-01-11] MEDS: traZODone HCL 50 MG TABLET 150 MG PO (21:50)
[2023-01-11] MEDS: diphenhydrAMINE HCL 25 MG CAPSULE PO (21:50)
[2023-01-11] MEDS: Loperamide HCl 2 MG CAPSULE PO (21:50)
[2023-01-12] MEDS: Omeprazole 40 MG CAPSULE.DR PO (06:34)
[2023-01-12 06:43] VITALS: BP 114/57; PULSE 83; RESP 16; TEMP 36; O2SAT 94
[2023-01-12] MEDS: ARIPiprazole 2 MG TABLET PO (08:34)
[2023-01-12] MEDS: Venlafaxine HCl ER 150 MG CAP.ER.24H 300 MG PO (08:34)
[2023-01-12] MEDS: Methylphenidate HCl 10 MG TABLET 20 MG PO (08:34)
[2023-01-12] MEDS: Montelukast Sodium 10 MG TABLET PO (08:35)
[2023-01-12] MEDS: ARIPiprazole 10 MG TABLET PO (08:35)
[2023-01-12] MEDS: Topiramate 100 MG TABLET 200 MG PO ×2 (08:35→21:00)
[2023-01-12] MEDS: Amphetamine Mixed Salts 20 MG TABLET PO (08:35)
[2023-01-12] MEDS: hydroCHLOROthiazide 25 MG TABLET PO (08:35)
[2023-01-12] MEDS: Gabapentin 600 MG TABLET 2400 MG PO ×2 (08:35→21:00)
[2023-01-12] MEDS: Ibuprofen 600 MG TABLET PO ×3 (08:35→21:00)
[2023-01-12] MEDS: Loratadine 10 MG TABLET PO (08:35)
--- NOTE | 2023-01-12 10:45 | MHC.CM.ED ---
Addendum entered by Nancy Shi 01/12/23 14:16: [facility] is not able to offer a bed. Still waiting to hear from [facility] and [facility]. Referral broadcasted within 50 miles at this time. Addendum entered by Nancy Shi 01/12/23 11:23: [facility] is not contracted with patient's insurance. Original Note: Patient remains in ER overflow. Counts include 234 beds at the [facility] is able to offer a bed. Patient declines this bed. Her father was in that facility and patient did not feel her father had a good experience there. Still watiing to hear from [facility], [facility], [facility] and [facility]. Continue to monitor for d/c needs.
[2023-01-12 14:00] VITALS: BP 156/68; PULSE 87; RESP 16; TEMP 36.7; O2SAT 93
[2023-01-12 16:53] LABS: Glucose, Whole Blood 101 mg/dL (60-115)
[2023-01-12] MEDS: traZODone HCL 50 MG TABLET 150 MG PO (20:56)
[2023-01-12] MEDS: Morphine Sulfate Immed Release 15 MG TABLET PO (20:57)
[2023-01-12 22:29] VITALS: BP 120/54; PULSE 79; RESP 18; TEMP 36.6; O2SAT 95
--- NOTE | 2023-01-13 01:59 | PC.NURSE ---
CARE ASSUMED 7PM..AWAKE..ALERT..ORIENTED X3..RESPIRATIONS EASY...REMAINS WITH WRAP TO LEFT LOWER LEG AND SPLINT/BRACE TO RLL...C/O 9-11/25 BILATERAL ANKLE PAIN ALTHOUGH APPEARS IN NO ACUTE DISTRESS...PRN MORPHINE IR 15MG PO GIVEN...RESTFUL...SMILING...OOB TO BEDSIDE COMMODE W/O DIFFICULTY...VOIDED AND PASSED FORMED BROWN STOOL...CURRENTLY DOZING..RESPIRATIONS EASY..NO COMPLAINTS
[2023-01-13 06:00] VITALS: BP 130/65; PULSE 70; RESP 16; TEMP 36.2; O2SAT 95
[2023-01-13] MEDS: Omeprazole 40 MG CAPSULE.DR PO (06:11)
--- NOTE | 2023-01-13 06:13 | MHC.EDTECH ---
Patient slept most of l night ,up to use bedside 1 time ,void had a bowel movement ,back to bed ,vitals taken and fresh ice water given ,Call hermosillo within pt reach .
[2023-01-13] MEDS: Topiramate 100 MG TABLET 200 MG PO (08:03)
[2023-01-13] MEDS: hydroCHLOROthiazide 25 MG TABLET PO (08:03)
[2023-01-13] MEDS: Gabapentin 600 MG TABLET 2400 MG PO (08:04)
[2023-01-13] MEDS: Venlafaxine HCl ER 150 MG CAP.ER.24H 300 MG PO (08:04)
[2023-01-13] MEDS: Montelukast Sodium 10 MG TABLET PO (08:04)
[2023-01-13] MEDS: Loratadine 10 MG TABLET PO (08:05)
[2023-01-13] MEDS: Methylphenidate HCl 10 MG TABLET 20 MG PO (08:05)
[2023-01-13] MEDS: ARIPiprazole 2 MG TABLET PO (08:05)
[2023-01-13] MEDS: Amphetamine Mixed Salts 20 MG TABLET PO (08:05)
[2023-01-13] MEDS: ARIPiprazole 10 MG TABLET PO (08:05)
[2023-01-13] MEDS: Ibuprofen 600 MG TABLET PO ×2 (08:05→13:25)
[2023-01-13 10:58] VITALS: BP 130/65; PULSE 70; O2SAT 95
--- NOTE | 2023-01-13 12:53 | PC.NURSE ---
Positive CMS to right lower extremity, demarcus wraps on splint loose, re wraped.
--- NOTE | 2023-01-13 13:11 | PC.NURSE ---
Reviewed discharge instructions with patient who verbalized understanding to call ortho for follow up apt. Splint to remain in place until seen by ortho
--- NOTE | 2023-01-13 13:22 | PC.NURSE ---
Patient friend in to pick patient up. Friend asking how she will get patient up all the stairs to her apartment. Case management to book patient a ride home. Reviewed discharge plans with friend who verbalized understanding
--- NOTE | 2023-01-13 13:34 | MHC.CM.ED ---
Patient remains in ER overflow. The following facilities are able to offer a bed: [facility], [facility] , [facility], [facility], [facility] and [facility]. Met with patient to discuss placement options. Patient feels these facilities are too far and is requesting to go home with VNA. Patient agreeable to [facility]. Referral made via [facility]. [facility] is able to accept patient. Offered BLS transport for patient. Patient declined and stated a friend would pick her up. Friend arrived in ER to transport patient home. Patient told Stephanie SOLANO that she wouldn't be able to get up the stairs for her apartment. [facility] booked for 6pm. Patient, Stephanie SOLANO and Charlotte MENENDEZ aware. Continue to monitor for d/c needs.
--- NOTE | 2023-01-13 14:26 | PC.NURSE ---
Patients called stating he is not taking her home. States to send her to a facility for LTC, case management notified
[2023-01-13 14:48] VITALS: BP 168/81; PULSE 88; RESP 16; TEMP 36.9; O2SAT 99
== END 2023-01-13 19:19 | disposition home or self-care (01) ==
PROVIDERS: Physician Assistant; Emergency Provider Emergency Medicine; PCP Family Medicine
DX: S92.351A Displaced fracture of fifth metatarsal bone, right foot, initial encounter for closed fracture (principal); W10.9XXA Fall (on) (from) unspecified stairs and steps, initial encounter; Y93.9 Activity, unspecified; Y92.9 Unspecified place or not applicable; Y99.9 Unspecified external cause status; M25.572 Pain in left ankle and joints of left foot; M25.571 Pain in right ankle and joints of right foot; M25.562 Pain in left knee; I10 Essential (primary) hypertension; Z79.899 Other long term (current) drug therapy; Z11.52 Encounter for screening for COVID-19
CPT/HCPCS: 73562; 73600; 73620; 73700; 82947; 87635; 96372; 97116; 97161; 97162; 97530; 99284; 99285; J1885

== ENCOUNTER 2023-01-20 21:41 | Emergency (ER) | payer MEDICAID, SELFPAY ==
--- NOTE | ~2023-01-20 | XR_ITS ---
EXAMINATION: Left lower leg and ankle x-ray CLINICAL INFORMATION: Pain. Known fracture. COMPARISON: Previous left ankle x-ray and lower leg CT December 2022 TECHNIQUE: 2 views of the left lower leg and left ankle FINDINGS: Left ankle: There is a nondisplaced oblique fracture of the distal fibular shaft. Lateral tibial plafond fracture difficult to visualize. This may be seen on the AP view, minimally displaced and appears unchanged. No other fracture. Ankle mortise is normal. There is an ankle joint effusion. There is an overlying splint. Left lower leg: No more proximal lower leg fracture is seen. The visualized knee joint is normal. Soft tissues are normal. XR/XR tibia fibula LT 2V IMPRESSION: Nondisplaced distal fibular shaft and lateral tibial plafond fractures not appreciably changed. Ankle joint effusion.
--- NOTE | ~2023-01-20 | XR_ITS ---
EXAMINATION: Left lower leg and ankle x-ray CLINICAL INFORMATION: Pain. Known fracture. COMPARISON: Previous left ankle x-ray and lower leg CT December 2022 TECHNIQUE: 2 views of the left lower leg and left ankle FINDINGS: Left ankle: There is a nondisplaced oblique fracture of the distal fibular shaft. Lateral tibial plafond fracture difficult to visualize. This may be seen on the AP view, minimally displaced and appears unchanged. No other fracture. Ankle mortise is normal. There is an ankle joint effusion. There is an overlying splint. Left lower leg: No more proximal lower leg fracture is seen. The visualized knee joint is normal. Soft tissues are normal. XR/XR ankle LT min 3V IMPRESSION: Nondisplaced distal fibular shaft and lateral tibial plafond fractures not appreciably changed. Ankle joint effusion.
[2023-01-20 22:13] VITALS: BP 142/88; BP 199/92; PULSE 106; PULSE 63; RESP 16; TEMP 36.7; O2SAT 100; BMI 18.4
--- NOTE | 2023-01-20 23:25 | ED.GENADULT ---
HPI - General Adult General Chief complaint: General Medical Stated complaint: ankle pain after fall Time Seen by Provider: 01/20/23 22:17 Source: patient Mode of arrival: EMS History of Present Illness HPI narrative: 57-year-old female who had an appointment with [facility] today but states she was unable to make the appointment because she did not have transportation set up. She reports left ankle pain. Related Data Home Medications Medication Instructions Recorded Confirmed aripiprazole 10 mg tablet 10 mg PO DAILY 01/07/23 01/07/23 aripiprazole 2 mg tablet 2 mg PO DAILY 01/07/23 01/07/23 lpdesgrfzo-xwxlxbfzacxgb-xsiecfnx 1 tab PO Q4H PRN Headache 01/07/23 01/07/23 50 mg-325 mg-40 mg tablet cetirizine 10 mg tablet 10 mg PO DAILY 01/07/23 01/07/23 dextroamphetamine-amphetamine 20 1 tab PO BID 01/07/23 01/07/23 mg tablet erenumab-aooe 70 mg/mL 70 mg subcut QMONTH 01/07/23 01/07/23 subcutaneous auto-injector (Aimovig Autoinjector) gabapentin 800 mg tablet 2,400 mg PO BID 01/07/23 01/07/23 hydrochlorothiazide 25 mg tablet 25 mg PO DAILY 01/07/23 01/07/23 ibuprofen 600 mg tablet 600 mg PO TID 01/07/23 01/07/23 lamotrigine 200 mg tablet 600 mg PO BEDTIME 01/07/23 01/07/23 lorazepam 0.5 mg tablet 0.5 mg PO BEDTIME PRN Anxiety 01/07/23 01/07/23 methylphenidate HCl 20 mg tablet 20 mg PO BID 01/07/23 01/07/23 minocycline 50 mg capsule 50 mg PO BID 01/07/23 01/07/23 montelukast 10 mg tablet 10 mg PO DAILY 01/07/23 01/07/23 omeprazole 40 mg capsule,delayed 40 mg PO DAILY 01/07/23 01/07/23 release ondansetron HCl 8 mg tablet 8 mg PO Q8H PRN Nausea And Vomiting 01/07/23 01/07/23 prochlorperazine maleate 10 mg 10 mg PO Q6H PRN migraine 01/07/23 01/07/23 tablet sumatriptan succinate 100 mg tablet 100 mg PO NEEDED PRN Migraine 01/07/23 01/07/23 Headache sumatriptan succinate 6 mg/0.5 mL 6 mg subcut NEEDED PRN Migraine 01/07/23 01/07/23 subcutaneous pen injector Headache topiramate 100 mg tablet 200 mg PO BID 01/07/23 01/07/23 trazodone 150 mg tablet 150 mg PO DAILY MRX1 PRN Insomnia 01/07/23 01/08/23 venlafaxine 150 mg 300 mg PO DAILY 01/07/23 01/07/23 capsule,extended release 24 hr ketorolac 10 mg tablet 20 mg PO Q7D PRN migraine 01/08/23 01/08/23 Previous Rx's Medication Instructions Recorded naproxen 500 mg tablet 500 mg PO BID PRN pain #20 tabs 06/25/20 Allergies Allergy/AdvReac Type Severity Reaction Status Date / Time codeine Allergy Itching Verified 01/07/23 13:20 erythromycin base Allergy Rash Verified 01/07/23 13:20 Latex, Natural Rubber Allergy Rash Verified 01/07/23 13:20 Penicillins Allergy Rash Verified 01/07/23 13:20 Review of Systems Review of Systems: Pertinent positives and negatives as stated in [facility] Past Medical History Source: nursing notes reviewed Medical History Migraines Asthma HTN (hypertension) Social History Social History Alcohol intake: current Alcohol intake frequency: holidays/special occasions only Smoked in Last 30 Days: No Use of substances other than those prescribed or required for medical reasons: No Advance Directives: No Advance Directives Information Provided: No Physical Exam ED Vital Signs: Vital Signs - 24 hr 01/20/23 22:13 01/20/23 23:43 Temperature 98.1 F 98.2 F Pulse Rate 63 68 Respiratory Rate 16 18 Blood Pressure 199/92 H 181/78 H Pulse Oximetry 100 100 Oxygen Delivery Method Room Air Room Air BMI result Body Mass Index 18.4 VITAL SIGNS: Reviewed. GENERAL: Well developed, well nourished, in no acute distress. HEAD: Normocephalic/atraumatic EYES: PERRLA, EOMI EARS: Ext canals without abnormality NOSE: Nares patent bilateral OROPHARYNX: no oral lesions noted, posterior pharynx clear NECK: Supple, no adenopathy LUNGS: Normal breath sounds. No adventitious sounds or accessory muscle use. SpO2<100> CARDIOVASCULAR: Regular rate and rhythm without noted murmurs ABDOMEN: Soft, non-tender, non-distended with bowel sounds. MUSCULOSKELETAL: No tenderness, deformities, or effusions noted on gross inspection. EXTREMITIES: No cyanosis, clubbing or edema. rLE: Walking boot in place LLE: Splint in place, toes warm SKIN: Inspection of the skin reveals no rashes NEUROLOGIC: Alert and oriented x 4. Strength and sensation to light touch were grossly intact x 4. Medications Administered Discontinued Medications Generic Name Dose Route Start Last Admin Trade Name Freq PRN Reason Stop Dose Admin Acetaminophen 975 mg 01/20/23 23:54 01/21/23 00:25 Acetaminophen 325 Mg Tablet PO 01/20/23 23:55 975 mg ONCE ONE Administration Ibuprofen 400 mg 01/20/23 23:54 01/21/23 00:25 Ibuprofen 400 Mg Tablet PO 01/20/23 23:55 400 mg ONCE ONE Administration Medical Decision Making Medical Decision Making MDM Narrative: 57-year-old female who reports additional injury and concern regarding her left ankle. I reviewed imaging studies which demonstrate no change to the nondisplaced distal fibular shaft fracture and no change to the lateral tibial plafond fracture. There is a demonstrated ankle joint effusion and patient was reminded once again to keep her extremity elevated and use ice. Patient is otherwise discharged home after rechecking blood pressure. She denies any headaches or chest pain. Patient received combination analgesics Tylenol and ibuprofen. Differential Diagnosis Differential Diagnoses: The differential diagnosis associated with the presentation includes Please see the discussion above Admission/Observation Consideration of admission/observation: Escalation of care including admission/observation considered Please see the discussion above Radiology Impression Discussion of test interpretation with radiology: I have reviewed the radiologist's reading. Radiologist Impression: Please see the discussion above Discharge Plan Discharge Clinical Impression: Ankle fracture Patient Disposition: Home, Self-Care Instructions: Ankle Fracture (ED) Additional Instructions: 1. Resume all home medications as prescribed. 2. Continue to use your walker for ambulation, but remember it is exceedingly important that you continue to elevate that left lower extremity and apply ice for 10-15 minutes, 3 to 4 times a day. Please call [facility] 1st thing in the morning to set up an appointment. Prescriptions: No Action naproxen 500 mg tablet 500 mg PO BID PRN (Reason: pain) Qty: 20 0RF lamotrigine 200 mg tablet 600 mg PO BEDTIME cetirizine 10 mg tablet 10 mg PO DAILY sumatriptan succinate 100 mg tablet 100 mg PO NEEDED PRN (Reason: Migraine Headache) methylphenidate HCl 20 mg tablet 20 mg PO BID ondansetron HCl 8 mg tablet 8 mg PO Q8H PRN (Reason: Nausea And Vomiting) venlafaxine 150 mg capsule,extended release 24hr 300 mg PO DAILY prochlorperazine maleate 10 mg tablet 10 mg PO Q6H PRN (Reason: migraine) omeprazole 40 mg capsule,delayed release(DR/EC) 40 mg PO DAILY mkgnxtiafu-nghnlnwooznjz-uzdp 50-325-40 mg tablet 1 tab PO Q4H PRN (Reason: Headache) lorazepam 0.5 mg tablet 0.5 mg PO BEDTIME PRN (Reason: Anxiety) gabapentin 800 mg tablet 2,400 mg PO BID trazodone 150 mg tablet 150 mg PO DAILY MRX1 PRN (Reason: Insomnia) Rx Instructions: TO BE GIVEN AT BEDTIME dextroamphetamine-amphetamine 20 mg tablet 1 tab PO BID minocycline 50 mg capsule 50 mg PO BID montelukast 10 mg tablet 10 mg PO DAILY hydrochlorothiazide 25 mg tablet 25 mg PO DAILY ibuprofen 600 mg tablet 600 mg PO TID topiramate 100 mg tablet 200 mg PO BID aripiprazole 10 mg tablet 10 mg PO DAILY aripiprazole 2 mg tablet 2 mg PO DAILY Aimovig Autoinjector 70 mg/mL auto-injector 70 mg subcut QMONTH sumatriptan succinate 6 mg/0.5 mL pen injector 6 mg subcut NEEDED PRN (Reason: Migraine Headache) ketorolac 10 mg tablet 20 mg PO Q7D PRN (Reason: migraine) Referrals: Vicente Tolentino MD [Physician] -
[2023-01-20 23:43] VITALS: BP 181/78; PULSE 68; RESP 18; TEMP 36.8; O2SAT 100
[2023-01-21] MEDS: Ibuprofen 400 MG TABLET PO (00:25)
[2023-01-21] MEDS: Acetaminophen 325 MG TABLET 975 MG PO (00:25)
[2023-01-21 01:53] VITALS: BP 163/76; PULSE 77; RESP 16; O2SAT 97
== END 2023-01-21 01:54 | disposition home or self-care (01) ==
PROVIDERS: Emergency Provider Student in an Organized Health Care Education/Training Program
DX: S82.892A Other fracture of left lower leg, initial encounter for closed fracture (principal); M25.572 Pain in left ankle and joints of left foot; X58.XXXA Exposure to other specified factors, initial encounter; Y93.9 Activity, unspecified; Y92.9 Unspecified place or not applicable; Y99.9 Unspecified external cause status; Z79.899 Other long term (current) drug therapy
CPT/HCPCS: 73590; 73610; 99283; 99284

== ENCOUNTER 2024-03-24 17:35 | Emergency (ER) | payer MEDICARE, MEDICAID, SELFPAY ==
--- NOTE | ~2024-03-24 | CT_ITS ---
CLINICAL HISTORY: trauma CT left knee without contrast Comparison: None Findings: Nondisplaced medial cortical fracture of fibular head. No other acute bony abnormality. Mild degenerative change with joint space loss. Chondrocalcinosis consistent with CPPD. Trace joint effusion noted. Impression: Nondisplaced medial fibular head cortical fracture CPPD with degenerative change and trace effusion This document has been electronically signed by: Juarez Sanon MD on 03/25/2024 00:52:21
--- NOTE | ~2024-03-24 | XR_ITS ---
CLINICAL HISTORY: trauma 3 view left foot Comparison: None Findings: No fractures or dislocations. No significant arthritic change or erosions. No ankle effusion. No radiopaque foreign body. IMPRESSION: 1. No acute findings. This document has been electronically signed by: Fannie Farley MD on 03/24/2024 21:42:10
--- NOTE | ~2024-03-24 | XR_ITS ---
CLINICAL HISTORY: trauma 4 view left knee Comparison: CR/SR - XR KNEE LT 3V - 01/07/2023 01:41 PM EST Findings: No fractures or dislocations. No significant arthritic change or erosions. No joint effusion. No radiopaque foreign body. IMPRESSION: 1. No acute findings. This document has been electronically signed by: Fannie Farley MD on 03/24/2024 21:53:33
--- NOTE | ~2024-03-24 | XR_ITS ---
CLINICAL HISTORY: trauma 2 view left ankle Comparison: 01/07/2023 Findings: Bones intact. No dislocations. No significant loss of joint space, osteophytes, or erosions. No ankle effusion. No radiopaque foreign body. IMPRESSION: 1. No acute findings. This document has been electronically signed by: Fannie Farley MD on 03/24/2024 21:44:25
[2024-03-24 17:44] VITALS: BP 121/74; PULSE 78; O2SAT 98
[2024-03-24 17:52] VITALS: BP 113/60; PULSE 80; RESP 18; TEMP 36.4; O2SAT 98; BMI 22.3
--- NOTE | 2024-03-24 18:46 | ECG_ITS ---
Test Reason : WEAKNESS Blood Pressure : */* mmHG Vent. Rate : 74 BPM Atrial Rate : 74 BPM P-R Int : 186 ms QRS Dur : 92 ms QT Int : 396 ms P-R-T Axes : 63 49 67 degrees QTcB Int : 439 ms Normal sinus rhythm Septal infarct , age undetermined Abnormal ECG When compared with ECG of 18-Oct-2005 15:30, Septal infarct is now Present Referred By: Jared Vega Electronically Signed By: Olegario Lee
--- NOTE | 2024-03-24 19:47 | ED.GENADULT ---
HPI - General Adult General Chief complaint: Weakness Stated complaint: Bilateral leg weakness, unable to ambulate Time Seen by Provider: 03/24/24 18:27 Source: patient, RN notes reviewed and old records reviewed Mode of arrival: EMS Limitations: no limitations History of Present Illness ED Provider: Silvia HPI narrative: 58 old female presents for evaluation of weakness. Patient reports that she was attempting to get something out of the Fridge earlier when she felt as if her legs were shaking and then became weak and she fell to the ground. She reports landing on both of her knees She has pain mostly to the left knee and left foot Denies any head strike. She would not have any headache, chest pain, shortness of breath or palpitations. No abdominal pain nausea or vomiting She was given a boot by her irzvhraw-xk-mee and the patient states he was able to get up and go to the bathroom while using the walking boot Related Data Home Medications ?Medication ?Instructions ?Recorded ?Confirmed aripiprazole 10 mg tablet 10 mg PO DAILY 01/07/23 01/07/23 aripiprazole 2 mg tablet 2 mg PO DAILY 01/07/23 01/07/23 ezjqkfzyog-ggminoxkgxvbl-xdpkzmek 1 tab PO Q4H PRN Headache 01/07/23 01/07/23 50 mg-325 mg-40 mg tablet cetirizine 10 mg tablet 10 mg PO DAILY 01/07/23 01/07/23 dextroamphetamine-amphetamine 20 1 tab PO BID 01/07/23 01/07/23 mg tablet erenumab-aooe 70 mg/mL 70 mg subcut QMONTH 01/07/23 01/07/23 subcutaneous auto-injector (Aimovig Autoinjector) gabapentin 800 mg tablet 2,400 mg PO BID 01/07/23 01/07/23 hydrochlorothiazide 25 mg tablet 25 mg PO DAILY 01/07/23 01/07/23 ibuprofen 600 mg tablet 600 mg PO TID 01/07/23 01/07/23 lamotrigine 200 mg tablet 600 mg PO BEDTIME 01/07/23 01/07/23 lorazepam 0.5 mg tablet 0.5 mg PO BEDTIME PRN Anxiety 01/07/23 01/07/23 methylphenidate HCl 20 mg tablet 20 mg PO BID 01/07/23 01/07/23 minocycline 50 mg capsule 50 mg PO BID 01/07/23 01/07/23 montelukast 10 mg tablet 10 mg PO DAILY 01/07/23 01/07/23 omeprazole 40 mg capsule,delayed 40 mg PO DAILY 01/07/23 01/07/23 release ondansetron HCl 8 mg tablet 8 mg PO Q8H PRN Nausea And Vomiting 01/07/23 01/07/23 prochlorperazine maleate 10 mg 10 mg PO Q6H PRN migraine 01/07/23 01/07/23 tablet sumatriptan succinate 100 mg tablet 100 mg PO NEEDED PRN Migraine 01/07/23 01/07/23 Headache sumatriptan succinate 6 mg/0.5 mL 6 mg subcut NEEDED PRN Migraine 01/07/23 01/07/23 subcutaneous pen injector Headache topiramate 100 mg tablet 200 mg PO BID 01/07/23 01/07/23 trazodone 150 mg tablet 150 mg PO DAILY MRX1 PRN Insomnia 01/07/23 01/08/23 venlafaxine 150 mg 300 mg PO DAILY 01/07/23 01/07/23 capsule,extended release 24 hr ketorolac 10 mg tablet 20 mg PO Q7D PRN migraine 01/08/23 01/08/23 Previous Rx's ?Medication ?Instructions ?Recorded naproxen 500 mg tablet 500 mg PO BID PRN pain #20 tabs 06/25/20 Allergies Allergy/AdvReac Type Severity Reaction Status Date / Time codeine Allergy Itching Verified 03/24/24 17:53 erythromycin base Allergy Rash Verified 01/07/23 13:20 Latex, Natural Rubber Allergy Rash Verified 01/07/23 13:20 Penicillins Allergy Rash Verified 01/07/23 13:20 Review of Systems Constitutional: Constitutional: Denies body ache(s), Denies chills, Denies fever(s) and Reports weakness Eyes: Eyes: Denies blurry vision ENT: Denies dysphagia, Denies vertigo and Denies dizziness Cardiovascular: Cardiovascular: Denies chest pain Respiratory: Respiratory: Denies cough Gastrointestinal: Gastrointestinal: Denies abdominal pain, Denies dysphagia, Denies nausea and Denies vomiting Musculoskeletal: Musculoskeletal: Denies back pain, Reports arthralgias, Reports joint swelling and Reports limited range of motion Integumentary/Breasts: Skin/Breast: Denies rash Neurologic: Denies vertigo, Denies dizziness and Reports weakness Psychiatric: Psychiatric: Denies anxiety PMFSH Past Medical History Medical History Migraines Asthma HTN (hypertension) Social History Social History Alcohol intake: current Alcohol intake frequency: holidays/special occasions only Smoked in Last 30 Days: No Use of substances other than those prescribed or required for medical reasons: No Advance Directives: No Advance Directives Information Provided: No Patient : No Physical Exam ED Vital Signs: Vital Signs - 24 hr 03/24/24 17:52 03/24/24 20:32 03/24/24 21:58 Temperature 97.6 F 98.2 F 98.8 F Pulse Rate 80 77 73 Respiratory Rate 18 14 20 Blood Pressure 113/60 126/58 L 111/61 Pulse Oximetry 98 98 98 Oxygen Delivery Method Room Air Room Air Room Air 03/24/24 23:42 Temperature 98.7 F Pulse Rate 78 Respiratory Rate 18 Blood Pressure 115/56 L Pulse Oximetry 99 Oxygen Delivery Method Room Air BMI result Body Mass Index 22.3 Const General: healthy appearing, comfortable, no acute distress, alert and awake Nutritional Appearance: well nourished Orientation/consciousness: patient oriented x3 HENMT Head: Yes normocephalic and Yes atraumatic Eyes Eyelids: Yes eyelids normal Conjunctivae: conjunctivae normal Sclerae: sclerae normal Corneas: corneas normal Pupils: Equal, round and reactive pupils present EOM: EOMs intact bilaterally Neck Neck: Yes full ROM Resp Effort & Inspection: normal respiratory effort, able to speak in complete sentences and not labored Cardio Rate: regular rate Rhythm: regular rhythm GI Inspection: No distended Palpation (GI): Soft to palpation, not firm, nontender, no guarding and not rigid Skin General skin exam: elasticity normal Neuro General: patient oriented x3 Cranial nerves: Yes CN's II-XII intact bilaterally, Yes Equal, round and reactive pupils present and Yes Bilaterally intact EOM present Cognition (Neuro): normal cognition Extrem Other: Tenderness to the lateral aspect of the left knee, no significant edema. There is ecchymosis overlying the popliteal fossa. There is ecchymosis to the left foot on the dorsal surface. This area is tender to palpation. There was no significant left ankle pain or swelling Course Reevaluation(s) Reevaluation #1: Patient's workup unremarkable, her x-rays did not show any evidence of fracture. I attempted to ambulate the patient with nursing staff. She was unable to put any weight on her left side. I ordered a CT scan of the left knee to rule out occult tibial plateau fracture. Time: 00:34 Reevaluation #2: Patient's CT of the knee shows a nondisplaced fibular head fracture. This is a nonweightbearing bone, no knee immobilizer will be required. Discussed with the attending who lives with plan Time: 01:02 Medications Administered Discontinued Medications Generic Name Dose Route Start Last Admin Trade Name Freq PRN Reason Stop Dose Admin Sodium Chloride 1,000 mls @ 999 mls/hr 03/24/24 19:00 03/24/24 21:16 Ns IV 03/24/24 20:00 Infused .Q1H1M ASHLY Infusion Medical Decision Making Medical Decision Making [facility] Narrative: 58 old female presents for evaluation of weakness in her legs leading to a fall. She injured her left knee and ankle. Plan for basic labs,, imaging of the left knee and foot. The patient has no focal neuro deficits. There was no head strike. Will defer CT scan of the brain in his time. She does report starting metformin over the last few months. Plan to order lactic acid Differential Diagnosis Differential Diagnoses: The differential diagnosis associated with the presentation includes Generalized weakness MAGO Lactic acidosis Upper respiratory infection Lab Data 03/24/24 19:55 03/24/24 19:55 Labs: Lab Results 03/24/24 Range/Units 19:55 WBC 11.7 H (4.8-10.8) X10*3/uL RBC 3.85 L (4.20-5.50) X10*6/uL Hgb 11.9 L (12.0-16.0) g/dl Hct 35.2 L (37.0-47.0) % MCV 91.4 (80.0-98.0) fL MCH 30.9 (27.0-33.0) pg MCHC 33.8 (31.0-35.0) g/dl RDW 12.9 (11.0-16.0) % Plt Count 255 (160-400) X10*3/uL MPV 9.9 (9.4-12.3) fL Immature Gran % (Auto) 0.3 (0.0-0.4) % Neut % (Auto) 71.9 (45-73) % Lymph % (Auto) 14.9 L (20-40) % [place] % (Auto) 10.0 (2-11) % Eos % (Auto) 2.6 (0-4) % Baso % (Auto) 0.3 (0-2) % Lymph # (Auto) 1.7 (1.2-4.9) X10*3/uL [place] # (Auto) 1.2 (0.1-1.2) X10*3/uL Eos # (Auto) 0.3 (0.0-0.4) X10*3/uL Baso # (Auto) 0.0 (0.0-0.2) X10*3/uL Abs Immat Gran (auto) 0.04 H (0.00-0.03) X10*3/uL Absolute Neuts (auto) 8.4 H (2.0-8.3) x10*3/uL Absolute Nucleated RBC 0.000 (0.0-0.012) X10*3/uL Nucleated RBC % (auto) 0.0 (0.0-0.2) /100WBC PT 10.3 L (10.9-12.4) SEC INR 0.9 (0.9-1.1) Sodium 138 (135-145) mmol/L Potassium 3.5 (3.3-5.1) mmol/L Chloride 110 H (96-108) mmol/L Carbon Dioxide 22 (22-29) mmol/L Anion Gap 10 L (12-20) BUN 31 H (9-16) mg/dL Creatinine 0.95 (0.5-1.4) mg/dL Estim Creat Clear Calc 58.9 Estimated GFR > 60 Random Glucose 122 H (60-115) mg/dL Lactic Acid 1.3 (0.5-2.0) mmol/L Calcium 9.0 (8.4-10.2) mg/dL Magnesium 2.4 (1.6-2.6) mg/dL Total Bilirubin 0.2 (0.0-1.0) mg/dL AST 22 (5-31) U/L ALT 22 (0-31) U/L Alkaline Phosphatase 58 (39-117) U/L Total Protein 6.1 L (6.5-8.0) g/dL Albumin 3.7 (3.5-5.0) g/dL Lipase 31 (8-78) U/L Ethyl Alcohol < 10 mg/dL Radiology Impression Discussion of test interpretation with radiology: I have reviewed the radiologist's reading. Radiologist Impression: Findings: Nondisplaced medial cortical fracture of fibular head. No other acute bony abnormality. Mild degenerative change with joint space loss. Chondrocalcinosis consistent with CPPD. Trace joint effusion noted. Impression: Nondisplaced medial fibular head cortical fracture CPPD with degenerative change and trace effusion This document has been electronically signed by: Juarez Sanon MD on 03/25/2024 00:52:21 Discharge Plan Discharge Clinical Impression: Weakness, Acute pain of left foot, Closed fracture fibula, head Patient Disposition: Still a Patient Additional Instructions: The CT scan of your knee shows a fracture to your knee on a nonweightbearing bone You have a fracture to the fibula Use ibuprofen/Tylenol as needed for pain. Elevate the leg above your heart while resting. Ice the area every 4 hours for 10-15 minutes Follow-up with orthopedics at the number provided Prescriptions: No Action naproxen 500 mg tablet 500 mg PO BID PRN (Reason: pain) Qty: 20 0RF lamotrigine 200 mg tablet 600 mg PO BEDTIME cetirizine 10 mg tablet 10 mg PO DAILY sumatriptan succinate 100 mg tablet 100 mg PO NEEDED PRN (Reason: Migraine Headache) methylphenidate HCl 20 mg tablet 20 mg PO BID ondansetron HCl 8 mg tablet 8 mg PO Q8H PRN (Reason: Nausea And Vomiting) venlafaxine 150 mg capsule,extended release 24hr 300 mg PO DAILY prochlorperazine maleate 10 mg tablet 10 mg PO Q6H PRN (Reason: migraine) omeprazole 40 mg capsule,delayed release(DR/EC) 40 mg PO DAILY jydignmoam-xqyzmybaalbwv-lyyd 50-325-40 mg tablet 1 tab PO Q4H PRN (Reason: Headache) lorazepam 0.5 mg tablet 0.5 mg PO BEDTIME PRN (Reason: Anxiety) gabapentin 800 mg tablet 2,400 mg PO BID trazodone 150 mg tablet 150 mg PO DAILY MRX1 PRN (Reason: Insomnia) Rx Instructions: TO BE GIVEN AT BEDTIME dextroamphetamine-amphetamine 20 mg tablet 1 tab PO BID minocycline 50 mg capsule 50 mg PO BID montelukast 10 mg tablet 10 mg PO DAILY hydrochlorothiazide 25 mg tablet 25 mg PO DAILY ibuprofen 600 mg tablet 600 mg PO TID topiramate 100 mg tablet 200 mg PO BID aripiprazole 10 mg tablet 10 mg PO DAILY aripiprazole 2 mg tablet 2 mg PO DAILY Aimovig Autoinjector 70 mg/mL auto-injector 70 mg subcut QMONTH sumatriptan succinate 6 mg/0.5 mL pen injector 6 mg subcut NEEDED PRN (Reason: Migraine Headache) ketorolac 10 mg tablet 20 mg PO Q7D PRN (Reason: migraine) Referrals: Destin Hill MD [Physician] - (left fibular head fracture) Print Language: Nicaraguan
[2024-03-24] MEDS: 0.9 % Sodium Chloride 1,000 ML 999 ML IV (19:58)
[2024-03-24 20:32] VITALS: BP 126/58; PULSE 77; RESP 14; TEMP 36.8; O2SAT 98
[2024-03-24 21:50] LABS: Anion Gap 10 (12-20)
[2024-03-24 21:51] LABS: Chloride 110 mmol/L (96-108); Potassium 3.5 mmol/L (3.3-5.1); Sodium 138 mmol/L (135-145)
[2024-03-24 21:52] LABS: Blood Urea Nitrogen 31 mg/dL (9-16); Carbon Dioxide 22 mmol/L (22-29); Creatinine Clr Calc Pharmacy 58.9; Estimated Glomerular Filt Rate > 60; Glucose Random 122 mg/dL (60-115)
[2024-03-24 21:53] LABS: Alanine Aminotransferase 22 U/L (0-31); Aspartate Amino Transferase 22 U/L (5-31); Bilirubin Total 0.2 mg/dL (0.0-1.0); INTERNATIONAL NORM RATIO 0.9 (0.9-1.1); Magnesium 2.4 mg/dL (1.6-2.6); Prothrombin Time 10.3 SEC (10.9-12.4); Total Protein 6.1 g/dL (6.5-8.0)
[2024-03-24 21:54] LABS: Albumin Level 3.7 g/dL (3.5-5.0); Alkaline Phosphatase 58 U/L (39-117); Lipase 31 U/L (8-78)
[2024-03-24 21:56] LABS: Lactic Acid 1.3 mmol/L (0.5-2.0)
[2024-03-24 21:57] LABS: Ethanol < 10 mg/dL
[2024-03-24 21:58] VITALS: BP 111/61; PULSE 73; RESP 20; TEMP 37.1; O2SAT 98
[2024-03-24 22:25] LABS: Basophils Percent Auto 0.3 % (0-2); Eosinophils Absolute Auto 0.3 X10*3/uL (0.0-0.4); Eosinophils Percent Auto 2.6 % (0-4); Hematocrit 35.2 % (37.0-47.0); Hemoglobin 11.9 g/dl (12.0-16.0); Imm Gran Abs Auto 0.04 X10*3/uL (0.00-0.03); Imm Gran Pct Auto 0.3 % (0.0-0.4); Lymphocytes Absolute Auto 1.7 X10*3/uL (1.2-4.9); Lymphocytes Percent Auto 14.9 % (20-40); MANUAL DIFF FLAG NO; Mean Corpuscular HGB Conc 33.8 g/dl (31.0-35.0); Mean Corpuscular Hemoglobin 30.9 pg (27.0-33.0); Mean Corpuscular Volume 91.4 fL (80.0-98.0); Mean Platelet Volume 9.9 fL (9.4-12.3); Monocytes Absolute Auto 1.2 X10*3/uL (0.1-1.2); Neutrophils Absolute Auto 8.4 x10*3/uL (2.0-8.3); Neutrophils Percent Auto 71.9 % (45-73); Platelet Count 255 X10*3/uL (160-400); Red Blood Count 3.85 X10*6/uL (4.20-5.50); Red Cell Distribution Width 12.9 % (11.0-16.0); White Blood Count 11.7 X10*3/uL (4.8-10.8)
[2024-03-24 23:42] VITALS: BP 115/56; PULSE 78; RESP 18; TEMP 37.1; O2SAT 99
--- NOTE | 2024-03-24 23:43 | PC.NURSE ---
patient reporting unable to urinate bladder scan showed 300 patient helped to bathroom and voided
[2024-03-25 02:13] VITALS: BP 105/61; PULSE 74; RESP 16; TEMP 36.7; O2SAT 100
[2024-03-25] MEDS: Ibuprofen 600 MG TABLET PO (02:21)
[2024-03-25] MEDS: Acetaminophen 325 MG TABLET 650 MG PO (02:21)
[2024-03-25 06:35] VITALS: BP 101/57; PULSE 74; RESP 12; TEMP 36.8; O2SAT 99
--- NOTE | 2024-03-25 10:43 | PC.NURSE ---
Report called to RUSS Mehta in Overflow
[2024-03-25 11:10] LABS: COVID-19 Test Negative (Negative); IDNOW Serial# 58CA691E
[2024-03-25 11:53] VITALS: BP 131/63; PULSE 70; RESP 17; TEMP 36.4; O2SAT 95
--- NOTE | 2024-03-25 12:10 | PC.NURSE ---
assumed care of patient around 1130 to overflow, patient ambulated with walker from hospital bed from ED stretcher. patient had steady gait, currently resting quietly in bed, resp even and unlabored. VSS. kitchen called for lunch tray. plan for patient to dc at 1pm home with vna services.
--- NOTE | 2024-03-25 12:39 | MHC.CM.ED ---
Received case management consult overnight. Patient came to the ER due to leg pain. Found to have left fibula fx. Physical therapy eval completed. Rehab is recommended. Met with patient in regards to discharge planning. Patient lives with her ex-, ambulates independently at baseline and had no services prior to coming to the ER. PCP is Vicente Tolentino. Copy of HCP verified to be on file. Patient is declining rehab at this time and wants to return home. A[facility]able to [facility]. Has been active with their agency in the past. Referral made to [facility] via [facility]. Landy gutierrez booked for 1pm. Med [facility] with chart. Patient, Janine RN and Neli PATEL aware. Continue to monitor for d/c needs.
[2024-03-25 13:01] LABS: Influenza A PCR NEGATIVE (Negative)
[2024-03-25 13:02] LABS: Influenza B PCR NEGATIVE (Negative); Resp Syncy Virus RNA Qual PCR NEGATIVE (Negative); SARS COV2 PCR INHOUSE NEGATIVE (Negative)
--- NOTE | 2024-03-25 13:47 | PC.NURSE ---
patient ate lunch, now resting quietly in bed, resp even and unlabored. this RN and patient walked to the bathroom, patient is standby assist with walker
[2024-03-25 13:55] VITALS: BP 134/63; PULSE 83; RESP 18; TEMP 36.3; O2SAT 100
--- NOTE | 2024-03-25 14:32 | PC.NURSE ---
report given to ems patient iv removed
[2024-03-25 14:38] VITALS: BP 134/63; PULSE 83; RESP 18; TEMP 36.3; O2SAT 100
== END 2024-03-25 14:38 | disposition home or self-care (01) ==
PROVIDERS: Physician Assistant; Registered Nurse Emergency; Emergency Provider Emergency Medicine; PCP Family Medicine
DX: S82.402A Unspecified fracture of shaft of left fibula, initial encounter for closed fracture (principal); X58.XXXA Exposure to other specified factors, initial encounter; M79.672 Pain in left foot; R26.81 Unsteadiness on feet; M25.562 Pain in left knee; J45.909 Unspecified asthma, uncomplicated; Y93.9 Activity, unspecified; Y92.9 Unspecified place or not applicable; Y99.8 Other external cause status; Z03.818 Encounter for observation for suspected exposure to other biological agents ruled out; Z79.899 Other long term (current) drug therapy; Z51.81 Encounter for therapeutic drug level monitoring
CPT/HCPCS: 0241U; 36415; 73564; 73610; 73630; 73700; 80053; 80307; 83605; 83690; 83735; 85025; 85610; 87635; 93005; 96360; 97162; 99285

== ENCOUNTER → 2024-03-24 18:46 | Outpatient (BNV) | payer MEDICARE, MEDICAID, SELFPAY | PROVIDERS: Emergency Provider Emergency Medicine; Visit Provider Internal Medicine Cardiovascular Disease | DX: R94.31 Abnormal electrocardiogram [ECG] [EKG] (principal) | CPT/HCPCS: 93010 ==

== ENCOUNTER → 2024-03-24 18:56 | Outpatient (BNV) | payer MEDICARE, MEDICAID, SELFPAY | PROVIDERS: Emergency Provider Emergency Medicine; Visit Provider Student in an Organized Health Care Education/Training Program | DX: S80.912A Unspecified superficial injury of left knee, initial encounter (principal); S99.912A Unspecified injury of left ankle, initial encounter; S99.922A Unspecified injury of left foot, initial encounter | CPT/HCPCS: 73564; 73610; 73630 ==

== ENCOUNTER → 2024-03-25 00:10 | Outpatient (BNV) | payer MEDICARE, MEDICAID, SELFPAY | PROVIDERS: Emergency Provider Emergency Medicine; Visit Provider Radiology Diagnostic Radiology | DX: S80.01XD Contusion of right knee, subsequent encounter (principal) | CPT/HCPCS: 73700 ==

== ENCOUNTER 2025-01-06 21:08 | Emergency (ER) | payer MEDICARE, MEDICAID, SELFPAY ==
--- NOTE | ~2025-01-06 | CT_ITS ---
CLINICAL HISTORY: weight loss, anemia CT chest with contrast Comparison: CT/SR - CT ABDOMEN PELVIS W IV CON - 01/06/25 23:49 EST Findings: The heart size is normal. No pericardial effusion. Thoracic aorta and pulmonary arteries are unremarkable. The visualized thyroid and mediastinum are unremarkable. No pathologically enlarged hilar or axillary lymph nodes. The lungs are clear. See same day CT of the abdomen and pelvis. The bones are intact. IMPRESSION: Unremarkable chest CT. This document has been electronically signed by: Carmine Avila MD on 01/07/2025 02:33:41
--- NOTE | ~2025-01-06 | CT_ITS ---
CLINICAL HISTORY: fall, mild pain posterior neck CT cervical spine without contrast Comparison: None provided Findings: No acute fracture or dislocation. Posterior alignment is normal. Moderate degenerative change. No radiopaque foreign bodies. Impression: No acute processes This document has been electronically signed by: Juarez Sanon MD on 01/06/2025 23:11:14
--- NOTE | ~2025-01-06 | CT_ITS ---
CLINICAL HISTORY: fall, headache CT head without contrast Comparison: None provided Findings: No acute intracranial fluid collection or hematoma. Mild chronic ischemic white matter disease. No acute process in sinuses or mastoids. No acute bony abnormality. Impression: No acute intracranial process This document has been electronically signed by: Juarez Sanon MD on 01/06/2025 23:08:38
--- NOTE | ~2025-01-06 | CT_ITS ---
CLINICAL HISTORY: weight loss, anemia CT abdomen and pelvis with contrast Comparison: None provided Findings: See same day CT of the chest. Hepatic steatosis. Distended gallbladder without wall thickening, pericholecystic fluid, or radiopaque stones. No intrahepatic or extrahepatic biliary tree dilation. No radiopaque biliary tree stones. Other solid organs unremarkable. No urolithiasis. No bowel obstruction, pneumoperitoneum, or pneumatosis. Minimal colonic diverticulosis without evidence of diverticulitis. Normal appendix. Urinary bladder underdistended limiting evaluation. Uterus and adnexa unremarkable. No pathologically enlarged lymph nodes. No free fluid. Lumbar disc decompression at L4-5. No acute fracture or dislocation. IMPRESSION: Hepatic steatosis. Otherwise, no acute findings. This document has been electronically signed by: Carmine Avila MD on 01/07/2025 02:23:56
--- NOTE | 2025-01-06 21:14 | ECG_ITS ---
Test Reason : CP Blood Pressure : */* mmHG Vent. Rate : 90 BPM Atrial Rate : 90 BPM P-R Int : 132 ms QRS Dur : 86 ms QT Int : 370 ms P-R-T Axes : 16 41 81 degrees QTcB Int : 452 ms Normal sinus rhythm cannot exxlude old Septal infarct (cited on or before 24-Mar-2024) Abnormal ECG When compared with ECG of 24-Mar-2024 20:28, T wave inversion now evident in Lateral leads Referred By: Alyssa Kelley Electronically Signed By: OBDULIA ARREGUIN
[2025-01-06 21:15] VITALS: BP 125/82; BP 129/71; PULSE 93; PULSE 96; RESP 18; TEMP 36.6; O2SAT 100; O2SAT 98; BMI 17.1
[2025-01-06 21:16] LABS: Glucose, Whole Blood 102 mg/dL (60-115)
--- NOTE | 2025-01-06 21:31 | ED.GENADULT ---
HPI - General Adult General Chief complaint: Weakness Stated complaint: Weak, dizzy, lkwt 830,fall w/ head strike Source: patient and EMS Mode of arrival: EMS Limitations: no limitations History of Present Illness ED Provider: Dr. Alyssa Kelley HPI narrative: Patient comes to the emergency room via EMS from home. Patient states that for about a month, she has been gradually feeling more weak, unwell, having frequent episodes of diarrhea. Patient states that she is known to have some kind of GI issue and she has chronic diarrhea, takes loperamide daily. However, about a month ago after getting her COVID and influenza immunization, patient states that she started declining. For the last week, patient states that the weakness became much worse. Patient states today when she stood up she started feeling very lightheaded, blacking out, she actually hit her head. Patient did not lose consciousness. Patient states that she has not experienced any chest pain or shortness of breath. Of note, EMS reported that the patient had earlier today left arm weakness around 830am, about 12.5 hrs ago which self-resolved. However, the patient states that it was not only her left arm, it was whole-body weakness. Related Data Home Medications ?Medication ?Instructions ?Recorded ?Confirmed aripiprazole 10 mg tablet 10 mg PO DAILY 01/07/23 01/07/23 aripiprazole 2 mg tablet 2 mg PO DAILY 01/07/23 01/07/23 dazzmkprur-ukibxgddlsyyl-vbhmyamw 1 tab PO Q4H PRN Headache 01/07/23 01/07/23 50 mg-325 mg-40 mg tablet cetirizine 10 mg tablet 10 mg PO DAILY 01/07/23 01/07/23 dextroamphetamine-amphetamine 20 1 tab PO BID 01/07/23 01/07/23 mg tablet erenumab-aooe 70 mg/mL 70 mg subcut QMONTH 01/07/23 01/07/23 subcutaneous auto-injector (Aimovig Autoinjector) gabapentin 800 mg tablet 2,400 mg PO BID 01/07/23 01/07/23 hydrochlorothiazide 25 mg tablet 25 mg PO DAILY 01/07/23 01/07/23 ibuprofen 600 mg tablet 600 mg PO TID 01/07/23 01/07/23 lamotrigine 200 mg tablet 600 mg PO BEDTIME 01/07/23 01/07/23 lorazepam 0.5 mg tablet 0.5 mg PO BEDTIME PRN Anxiety 01/07/23 01/07/23 methylphenidate HCl 20 mg tablet 20 mg PO BID 01/07/23 01/07/23 minocycline 50 mg capsule 50 mg PO BID 01/07/23 01/07/23 montelukast 10 mg tablet 10 mg PO DAILY 01/07/23 01/07/23 omeprazole 40 mg capsule,delayed 40 mg PO DAILY 01/07/23 01/07/23 release ondansetron HCl 8 mg tablet 8 mg PO Q8H PRN Nausea And Vomiting 01/07/23 01/07/23 prochlorperazine maleate 10 mg 10 mg PO Q6H PRN migraine 01/07/23 01/07/23 tablet sumatriptan succinate 100 mg tablet 100 mg PO NEEDED PRN Migraine 01/07/23 01/07/23 Headache sumatriptan succinate 6 mg/0.5 mL 6 mg subcut NEEDED PRN Migraine 01/07/23 01/07/23 subcutaneous pen injector Headache topiramate 100 mg tablet 200 mg PO BID 01/07/23 01/07/23 trazodone 150 mg tablet 150 mg PO DAILY MRX1 PRN Insomnia 01/07/23 01/08/23 venlafaxine 150 mg 300 mg PO DAILY 01/07/23 01/07/23 capsule,extended release 24 hr ketorolac 10 mg tablet 20 mg PO Q7D PRN migraine 01/08/23 01/08/23 Previous Rx's ?Medication ?Instructions ?Recorded naproxen 500 mg tablet 500 mg PO BID PRN pain #20 tabs 06/25/20 ferrous sulfate 325 mg (65 mg 325 mg PO DAILY #30 tabs 01/07/25 iron) tablet Allergies Allergy/AdvReac Type Severity Reaction Status Date / Time codeine Allergy Itching Verified 01/06/25 21:25 erythromycin base Allergy Rash Verified 01/06/25 21:25 Latex, Natural Rubber Allergy Rash Verified 01/06/25 21:25 Penicillins Allergy Rash Verified 01/06/25 21:25 Review of Systems Review of Systems: Constitutional : Reports 10 lb weight loss without trying once. No Fever, No Chills, No Night Sweats, complaining of fatigue, generalized malaise for about a month ENT/Mouth : No Hearing loss, No Ear Pain, No Nasal Congestion, No Sinus Pain, No Hoarseness, No sore throat, No Rhinorrhea, No Swallowing Difficulty Eyes: No Eye Pain, No Swelling, No Redness, No Foreign Body, No Discharge, No Vision Changes Cardiovascular : No Chest Pain, No SOB, No Dyspnea on Exertion, No Orthopnea, No Edema, No Palpitations Respiratory : No Cough, No Sputum, No Wheezing, No Smoke Exposure, No Dyspnea Gastrointestinal : No Nausea, No Vomiting, complaining of chronic diarrhea, No Constipation, No abdominal Pain, No Hematochezia, No Melena Genitourinary : no irregular bleeding, No Dysuria, No Urinary Frequency, No Hematuria, No Urinary Incontinence, No Urgency, No Flank Pain, No Urinary Flow Changes, No Hesitancy Musculoskeletal : No joint pain, No Myalgias, No Joint Swelling Skin : No Skin Lesions, No rash Neuro : No Weakness, No Numbness, No Paresthesias, No Loss of Consciousness, No Dizziness, No Headache Psych : No Anxiety/Panic, No Depression, No SI/HI/AH/VH, No Social Issues, Heme/Lymph: No Bruising, No Bleeding,No Lymphadenopathy Endocrine : No Polyuria, No Polydipsia, No Temperature Intolerance [facility] Past Medical History Medical History Migraines Asthma HTN (hypertension) Social History Social History Alcohol intake: current Alcohol intake frequency: holidays/special occasions only Alcohol type: wine Smoked in Last 30 Days: No Use of substances other than those prescribed or required for medical reasons: No Advance Directives: No Advance Directives Information Provided: No Patient : No Physical Exam ED Exam Exam: Appearance: Alert. Oriented X3. No acute distress. Patient's seems weak Eyes: Pupils equal, round and reactive to light. ENT: Pharynx normal. Neck: Normal inspection. Neck supple. No lymph nodes noted. No crepitus CVS: Normal heart rate and rhythm. Pulses normal. Normal S1 and S2 Respiratory: No respiratory distress. Breath sounds normal. No Wheezing. No rales Abdomen: Soft and nontender. No rigidity. No distention. Skin: Skin warm and dry. Normal skin color. Normal skin turgor. Extremities: No lower extremity edema. No Lacerations. No Rash, patient has a small hematoma to the back of the head Neuro: Oriented X 3. No motor deficit. No sensory deficit. Moving all extremities. No slurred speech. CN 2 through 12 grossly intact Psych: calm, cooperative, normal affect Vital Signs: Vital Signs - 24 hr 01/06/25 21:15 01/06/25 22:00 01/07/25 00:00 Temperature 97.8 F Pulse Rate 96 90 93 Respiratory Rate 18 16 17 Blood Pressure 129/71 Pulse Oximetry 100 Oxygen Delivery Method Room Air 01/07/25 02:00 01/07/25 02:58 01/07/25 03:00 Temperature Pulse Rate 90 88 99 Respiratory Rate 17 Blood Pressure 138/67 103/64 Pulse Oximetry Oxygen Delivery Method 01/07/25 03:02 01/07/25 06:00 01/07/25 06:17 Temperature 98.0 F Pulse Rate 104 H 87 91 Respiratory Rate 18 Blood Pressure 116/71 138/69 Pulse Oximetry 100 Oxygen Delivery Method Room Air 01/07/25 06:19 01/07/25 06:20 Temperature Pulse Rate 88 91 Respiratory Rate Blood Pressure 136/77 139/82 Pulse Oximetry Oxygen Delivery Method BMI result Body Mass Index 17.1 NIH Stroke Scale Internal: Initial- Upon Arrival Level of Consciousness: Alert Level of Consciousness Questions: Answers both questions correctly Level of Consciousness Commands: Performs both tasks correctly Best Gaze: Normal Visual: No visual loss Facial Palsy: Normal Motor Arm (Right): No drift Motor Arm (Left): No drift Motor Leg (Right): No drift Motor Leg (Left): No drift Limb Ataxia: Absent Sensory: Normal Best Language: No aphasia Dysarthia: Normal Extinction and Inattention: No abnormality Score: 0 Course Course Course Narrative: When EMS arrived, they called then the patient has a stroke alert. However, patient's symptoms are not consistent with a CVA. Also, her symptoms has been ongoing for 1 month, complaining of generalized malaise and weakness, no specific limb. On arrival, NIH score is 0 Patient does look unwell. All of patient's labs and imaging are pending Under review of systems, it was also noted that patient has had weight lost, proximally 10 lb within couple of months. Patient states that she is not trying to lose weight, she is actually trying to eat more. Medications Administered Discontinued Medications Generic Name Dose Route Start Last Admin Trade Name Ephraim PRN Reason Stop Dose Admin Acetaminophen 975 mg 01/07/25 02:59 01/07/25 03:03 Acetaminophen 325 Mg Tablet PO 01/07/25 03:00 975 mg ONCE ONE Administration Diazepam 2.5 mg 01/06/25 23:20 01/06/25 23:25 Diazepam 10 Mg/2 Ml Cartridge IVPUSH 01/06/25 23:21 2.5 mg STAT STA Administration Lactated Ringer's 1,000 mls @ 999 mls/hr 01/07/25 03:30 01/07/25 04:59 Lr IV 01/07/25 05:30 999 mls/hr .Q1H1M ASHLY Administration Iohexol 100 ml 01/06/25 23:51 01/06/25 23:51 Iohexol 350 Mg/Ml 100 Ml Infus..Btl IV 01/06/25 23:52 85 ml ONCE ONE Administration Ondansetron HCl 4 mg 01/07/25 05:39 01/07/25 05:43 Ondansetron Hcl 4 Mg/2 Ml Vial IVPUSH 01/07/25 05:40 4 mg ONCE ONE Administration Medical Decision Making Medical Decision Making MDM Narrative: Physician of EKG: Normal sinus rhythm, heart rate 90, no ST segment depression or elevation, no T-wave inversion, QTC 452 My interpretation of labs: Patient's white blood cell count 13.4, no obvious source of infection. Patient known to have chronic diarrhea for several months. Patient's hemoglobin is 11.4, hematocrit 33.8. Platelets 186 Patient states that to her knowledge, she has never been told that her hemoglobin is a bit low Occult guaiac test was heme negative Toxicology negative for drugs of abuse, patient does get prescribed amphetamines Serology negative for influenza a, influenza B, RSV and COVID Given patient's recent report of unintentional weight loss, we will scan the patient's chest abdomen and pelvis CT scan results of the head cervical spine chest abdomen or pelvis did not show any acute abnormality. Patient's labs do not show any significant acute abnormality Patient's orthostatic vitals were positive, patient was given 2 L of fluid. It is likely that patient's symptoms has been secondary to orthostatic hypotension After patient recovered and starting feeling better from sitting to standing, patient was able to ambulate to the bathroom unassisted Given patient's history and presentation, physical therapy and case management were considered. However, patient was able to get up and walk around the emergency room and to the bathroom unassisted. Differential Diagnosis Differential Diagnoses: The differential diagnosis associated with the presentation includes (Viral syndrome, chronic diarrhea, deconditioning, malignancy, UTI) Admission/Observation Consideration of admission/observation: Escalation of care including admission/observation considered (Given patient's history and presentation, observation was considered.) Lab Data MDM Lab Attestation statement: I reviewed the patient's lab results. 01/06/25 21:32 01/06/25 21:32 Labs: Lab Results 01/06/25 01/06/25 01/06/25 Range/Units 21:13 21:32 23:25 WBC 13.4 H (4.8-10.8) X10*3/uL RBC 3.91 L (4.20-5.50) X10*6/uL Hgb 11.4 L (12.0-16.0) g/dl Hct 33.8 L (37.0-47.0) % MCV 86.4 (80.0-98.0) fL MCH 29.2 (27.0-33.0) pg MCHC 33.7 (31.0-35.0) g/dl RDW 12.6 (11.0-16.0) % Plt Count 186 D (160-400) X10*3/uL MPV 10.5 (9.4-12.3) fL Immature Gran % (Auto) 0.4 (0.0-0.4) % Neut % (Auto) 69.9 (45-73) % Lymph % (Auto) 21.0 (20-40) % [place] % (Auto) 8.1 (2-11) % Eos % (Auto) 0.3 (0-4) % Baso % (Auto) 0.3 (0-2) % Lymph # (Auto) 2.8 (1.2-4.9) X10*3/uL [place] # (Auto) 1.1 (0.1-1.2) X10*3/uL Eos # (Auto) 0.0 (0.0-0.4) X10*3/uL Baso # (Auto) 0.0 (0.0-0.2) X10*3/uL Abs Immat Gran (auto) 0.06 H (0.00-0.03) X10*3/uL Absolute Neuts (auto) 9.3 H (2.0-8.3) x10*3/uL Absolute Nucleated RBC 0.000 (0.0-0.012) X10*3/uL Nucleated RBC % (auto) 0.0 (0.0-0.2) /100WBC Sodium 135 (135-145) mmol/L Potassium 3.4 (3.3-5.1) mmol/L Chloride 105 (96-108) mmol/L Carbon Dioxide 23 (22-29) mmol/L Anion Gap 10 L (12-20) BUN 33 H (9-16) mg/dL Creatinine 1.34 (0.5-1.4) mg/dL Estim Creat Clear Calc 32.5 Estimated GFR 40 POC Glucose 102 (60-115) mg/dL Random Glucose 115 (60-115) mg/dL Lactic Acid 1.7 (0.5-2.0) mmol/L Calcium 9.0 (8.4-10.2) mg/dL Iron 60 (30-160) mcg/dL TIBC 153 L (228-428) mcg/dL % Saturation 39 (15-50) % Unsat Iron Binding 93 ug/dL Total Bilirubin 0.5 (0.0-1.0) mg/dL Direct Bilirubin 0.2 (0.0-0.5) mg/dL AST 49 H (5-31) U/L ALT 64 H (0-31) U/L Alkaline Phosphatase 95 (39-117) U/L Troponin I High Sens 6.8 (<3.5-17.0) ng/L Total Protein 5.9 L (6.5-8.0) g/dL Albumin 3.7 (3.5-5.0) g/dL TSH 3.28 (0.32-4.0) uIU/mL Urine Color Urine Appearance Urine pH (5.0-9.0) Ur Specific [place] (1.005-1.025) Urine Protein (Neg-Trace) mg/dL Urine Glucose (UA) (Negative) mg/dL Urine Ketones (Negative) mg/dL Urine Blood (Negative) Urine Nitrite (Negative) Ur Leukocyte Esterase (Negative) Urine RBC (0-2) /HPF Urine WBC (0-5) /HPF Ur Squamous Epith Cells (0-2) /HPF Urine Bacteria (None Seen) Hyaline Casts (0-2) /LPF Stool Occult Blood NEGATIVE (NEGATIVE) Urine Opiates Screen (Not Detect) Ur Buprenorphine Scrn (Not Detect) ng/mL Ur Oxycodone Screen (Not Detect) ng/mL Urine Methadone Screen (Not Detect) ng/mL Urine Fentanyl Screen (Not Detect) Ur Barbiturates Screen (Not Detect) Ur Phencyclidine Scrn (Not Detect) Ur Amphetamines Screen (Not Detect) U Benzodiazepines Scrn (Not Detect) Urine Cocaine Screen (Not Detect) U Marijuana (THC) Screen (Not Detect) Ethyl Alcohol < 10 mg/dL Influenza Type A (PCR) NEGATIVE (Negative) Influenza Type B (PCR) NEGATIVE (Negative) RSV RNA Qual (PCR) NEGATIVE (Negative) SARS-CoV-2 RNA (RT-PCR) NEGATIVE (Negative) 01/07/25 Range/Units 02:51 WBC (4.8-10.8) X10*3/uL RBC (4.20-5.50) X10*6/uL Hgb (12.0-16.0) g/dl Hct (37.0-47.0) % MCV (80.0-98.0) fL MCH (27.0-33.0) pg MCHC (31.0-35.0) g/dl RDW (11.0-16.0) % Plt Count (160-400) X10*3/uL MPV (9.4-12.3) fL Immature Gran % (Auto) (0.0-0.4) % Neut % (Auto) (45-73) % Lymph % (Auto) (20-40) % [place] % (Auto) (2-11) % Eos % (Auto) (0-4) % Baso % (Auto) (0-2) % Lymph # (Auto) (1.2-4.9) X10*3/uL [place] # (Auto) (0.1-1.2) X10*3/uL Eos # (Auto) (0.0-0.4) X10*3/uL Baso # (Auto) (0.0-0.2) X10*3/uL Abs Immat Gran (auto) (0.00-0.03) X10*3/uL Absolute Neuts (auto) (2.0-8.3) x10*3/uL Absolute Nucleated RBC (0.0-0.012) X10*3/uL Nucleated RBC % (auto) (0.0-0.2) /100WBC Sodium (135-145) mmol/L Potassium (3.3-5.1) mmol/L Chloride (96-108) mmol/L Carbon Dioxide (22-29) mmol/L Anion Gap (12-20) BUN (9-16) mg/dL Creatinine (0.5-1.4) mg/dL Estim Creat Clear Calc Estimated GFR POC Glucose (60-115) mg/dL Random Glucose (60-115) mg/dL Lactic Acid (0.5-2.0) mmol/L Calcium (8.4-10.2) mg/dL Iron (30-160) mcg/dL TIBC (228-428) mcg/dL % Saturation (15-50) % Unsat Iron Binding ug/dL Total Bilirubin (0.0-1.0) mg/dL Direct Bilirubin (0.0-0.5) mg/dL AST (5-31) U/L ALT (0-31) U/L Alkaline Phosphatase (39-117) U/L Troponin I High Sens (<3.5-17.0) ng/L Total Protein (6.5-8.0) g/dL Albumin (3.5-5.0) g/dL TSH (0.32-4.0) uIU/mL Urine Color Yellow Urine Appearance Clear Urine pH 7.0 (5.0-9.0) Ur Specific [place] >= 1.030 H (1.005-1.025) Urine Protein Trace (Neg-Trace) mg/dL Urine Glucose (UA) Negative (Negative) mg/dL Urine Ketones Negative (Negative) mg/dL Urine Blood Negative (Negative) Urine Nitrite Negative (Negative) Ur Leukocyte Esterase Small (1+) H (Negative) Urine RBC 0-2 (0-2) /HPF Urine WBC 11-20 H (0-5) /HPF Ur Squamous Epith Cells 3-5 (0-2) /HPF Urine Bacteria Trace (None Seen) Hyaline Casts 3-5 (0-2) /LPF Stool Occult Blood (NEGATIVE) Urine Opiates Screen Not Detected (Not Detect) Ur Buprenorphine Scrn Not Detected (Not Detect) ng/mL Ur Oxycodone Screen Not Detected (Not Detect) ng/mL Urine Methadone Screen Not Detected (Not Detect) ng/mL Urine Fentanyl Screen Not Detected (Not Detect) Ur Barbiturates Screen Not Detected (Not Detect) Ur Phencyclidine Scrn Not Detected (Not Detect) Ur Amphetamines Screen POSITIVE H (Not Detect) U Benzodiazepines Scrn Not Detected (Not Detect) Urine Cocaine Screen Not Detected (Not Detect) U Marijuana (THC) Screen Not Detected (Not Detect) Ethyl Alcohol mg/dL Influenza Type A (PCR) (Negative) Influenza Type B (PCR) (Negative) RSV RNA Qual (PCR) (Negative) SARS-CoV-2 RNA (RT-PCR) (Negative) Independent Interpretation I performed an independent interpretation of an: CT Scan Radiology Impression Discussion of test interpretation with radiology: I have reviewed the radiologist's reading. Radiologist Impression: Head CT: No acute intracranial process Cervical spine CT: No acute fracture or dislocation. Posterior alignment is normal. Moderate degenerative change. No radiopaque foreign bodies. Unremarkable chest CT Abdominal/pelvic CT: Hepatic steatosis. Otherwise, no acute findings. Independent Historian Clinical information obtained from an independent historian. History obtained from or confirmed by: EMS Discharge Plan Discharge Clinical Impression: Orthostatic hypotension, Generalized weakness Patient Disposition: Home, Self-Care Instructions: Hypotension (ED), Weakness (ED), Dizziness (ED) Additional Instructions: Please follow-up with your primary care physician tomorrow. If you have any worsening or new symptoms, please return to the emergency room or call 911 Prescriptions: New ferrous sulfate 325 mg (65 mg iron) tablet 325 mg PO DAILY Qty: 30 2RF No Action naproxen 500 mg tablet 500 mg PO BID PRN (Reason: pain) Qty: 20 0RF lamotrigine 200 mg tablet 600 mg PO BEDTIME cetirizine 10 mg tablet 10 mg PO DAILY sumatriptan succinate 100 mg tablet 100 mg PO NEEDED PRN (Reason: Migraine Headache) methylphenidate HCl 20 mg tablet 20 mg PO BID ondansetron HCl 8 mg tablet 8 mg PO Q8H PRN (Reason: Nausea And Vomiting) venlafaxine 150 mg capsule,extended release 24hr 300 mg PO DAILY prochlorperazine maleate 10 mg tablet 10 mg PO Q6H PRN (Reason: migraine) omeprazole 40 mg capsule,delayed release(DR/EC) 40 mg PO DAILY xjlqnczthz-cfkpbgldpzhoq-dakp 50-325-40 mg tablet 1 tab PO Q4H PRN (Reason: Headache) lorazepam 0.5 mg tablet 0.5 mg PO BEDTIME PRN (Reason: Anxiety) gabapentin 800 mg tablet 2,400 mg PO BID trazodone 150 mg tablet 150 mg PO DAILY MRX1 PRN (Reason: Insomnia) Rx Instructions: TO BE GIVEN AT BEDTIME dextroamphetamine-amphetamine 20 mg tablet 1 tab PO BID minocycline 50 mg capsule 50 mg PO BID montelukast 10 mg tablet 10 mg PO DAILY hydrochlorothiazide 25 mg tablet 25 mg PO DAILY ibuprofen 600 mg tablet 600 mg PO TID topiramate 100 mg tablet 200 mg PO BID aripiprazole 10 mg tablet 10 mg PO DAILY aripiprazole 2 mg tablet 2 mg PO DAILY Aimovig Autoinjector 70 mg/mL auto-injector 70 mg subcut QMONTH sumatriptan succinate 6 mg/0.5 mL pen injector 6 mg subcut NEEDED PRN (Reason: Migraine Headache) ketorolac 10 mg tablet 20 mg PO Q7D PRN (Reason: migraine) Print Language: Sinhala
[2025-01-06 21:39] LABS: MANUAL DIFF FLAG NO
[2025-01-06 21:41] LABS: Hematocrit 33.8 % (37.0-47.0); Hemoglobin 11.4 g/dl (12.0-16.0); Imm Gran Abs Auto 0.06 X10*3/uL (0.00-0.03); Imm Gran Pct Auto 0.4 % (0.0-0.4); Lymphocytes Absolute Auto 2.8 X10*3/uL (1.2-4.9); Mean Corpuscular HGB Conc 33.7 g/dl (31.0-35.0); Mean Corpuscular Hemoglobin 29.2 pg (27.0-33.0); Mean Corpuscular Volume 86.4 fL (80.0-98.0); NRBC Abs Auto 0.000 X10*3/uL (0.0-0.012); NRBC Pct Auto 0.0 /100WBC (0.0-0.2); Platelet Count 186 X10*3/uL (160-400); Red Blood Count 3.91 X10*6/uL (4.20-5.50); White Blood Count 13.4 X10*3/uL (4.8-10.8)
[2025-01-06 21:56] LABS: Alanine Aminotransferase 64 U/L (0-31); Albumin Level 3.7 g/dL (3.5-5.0); Alkaline Phosphatase 95 U/L (39-117); Anion Gap 10 (12-20); Aspartate Amino Transferase 49 U/L (5-31); Blood Urea Nitrogen 33 mg/dL (9-16); Calcium 9.0 mg/dL (8.4-10.2); Carbon Dioxide 23 mmol/L (22-29); Chloride 105 mmol/L (96-108); Creatinine Clr Calc Pharmacy 32.5; Estimated Glomerular Filt Rate 40; Potassium 3.4 mmol/L (3.3-5.1); Sodium 135 mmol/L (135-145); Total Protein 5.9 g/dL (6.5-8.0)
[2025-01-06 22:00] VITALS: PULSE 90; RESP 16
[2025-01-06 22:03] LABS: Troponin-I High Sensitivity 6.8 ng/L (<3.5-17.0)
--- OUTSIDE RECORDS SUMMARY | 2025-01-06 22:06 | XMS_ITS | Encounter Summary ---
Author Organization [facility] Address [address] [facility] [address] [place] [address] Phone Care Team Providers Care Fruit [employer] Nut Farm Worker Name Role Phone Zee Wang MD Unavailable [phone] Rose Schreiber LOG PEELER Unavailable [phone] Ray Phoenix MD Unavailable [phone] Birgit Mcnamara YARD CONDUCTOR Unavailable Vicente Tolentino MD Primary Care Provider Vicente Tolentino MD Unavailable Elsi Torres RN Unavailable Elsi Torres RN Unavailable Elsi Torres RN Unavailable Vicnete Tolentino MD Unavailable Jessica Parks Unavailable [email or web address] Reina MooreW Unavailable [email or web address] Encounter Details Date Type Department Care Team (Late st Contact Info) Description 06/11/2020 Procedure Pass [facility], Ct Scan - [address] [address] Social History Tobacco Use Types Packs/Day Years Used Date Smoking Tobacco: Never Smokeless Tobacco: Never Alcohol Use Standard Drinks/Week Comments No 0 (1 standard drink = 0.6 oz pure alcohol) 1 drink in the past year in April Comments No Sex and Gender Information Value Date Recorded Sex Assigned at Female 02/23/2017 9:38 AM EST Legal Sex Female 9:42 PM EDT Gender Identity Female 04/13/2017 4:37 PM EST Sexual Orientation Straight 10/26/2019 11 :53 PM EDT documented as of this encounter Functional Status * Calculated C-SSRS Risk Score (Lifetime/Recent) Answer Date of Assessment Author No Risk Indicated 06/11/2020 7:00 PM EDT Glenda Cortez RN * Koppel Suicide Severity Rating Scale (Screener/Recent Self-Report) Question Answer Date of Assessment Author 1. Wish to be (Past 1 Month) No 021 7:00 PM EDT Glenda Cortez RN 2. Non-Specific Active Suici jose Thoughts (Past 1 Month) No 06/11/2020 7:00 PM EDT Marcelina Cortez RN 6. Suicidal Behavior (Lifetime) No 7:00 PM EDT Glenda Cortez RN documented as of this encounter Plan of Treatment Upcoming Encounters Date Type Department Care Team (Late st Contact Info) Description 12/30/2024 Procedure Pass [facility] [address] [place] [address] 01/02/2025 Procedure Pass [place] [address] 01/16/2025 10:30 AM EST Appointment Event Monitor [address] [place] [address] Yana Pichardo PA [address] [place] [id number] [email or web address] 03/01/2025 8:30 AM EST Appointment [facility] [address] [address] Vicente Tolentino MD [address] [place] [address] [phone] documented as of this encounter Visit Diagnoses Not on filedocumented in this encounter Care Teams Fruit [employer] Nut Farm Worker Relationship Specialty Start Date End Date Vicente Tolentino MD [address] [place] [address], [address] [place] [address] PCP - General Family Medicine 01/12/17 Zee Wang MD [address] [place] [address], [address] [place] [address] Historical LMR Provider 12/02/16 2 Rose Schreiber NP [address] [place] [address] Historical LMR Provider 12/02/16 2 Ray Phoenix MD [address] [place] [address] Historical LMR Provider 12/02/16 2 Birgit Mcnamara CNP [address] [place] [address] [address] [place] [address] Historical LMR Provider 12/02/16 Vicente Tolentino MD [address] [place] [id number] Insurance Assigned Provider 03/24/21 07/05/22 Elsi Torres RN [address] [place] [phone] PHCM Kiln Car Unloader 05/14/21 10/08/21 Elsi Torres RN [address] [place] [email or web address] PHC Kiln Car Unloader 05/15/21 05/19/21 Elsi Torres RN [address] [place] [phone] [email or web address] PHC Kiln Car Unloader 05/14/21 04/16/23 Vicente Tolentino MD [address] [place] [phone] Insurance Assigned Provider 08/23/22 10/25/22 Jessica Parks [address] [place] [id number] PHC Community Health Worker 09/09/22 12/08/22 Reina Moore, PLAYGROUND EQUIPMENT ERECTOR [address] [place] [phone] [email or web address] PHC Lead Generation Marketing Manager 09/12/22 09/22/22 documented as of this encounter Additional Source Comments The information contained in this document represents components of the legal health record. It is not the complete legal health record.[facility]
--- OUTSIDE RECORDS SUMMARY | 2025-01-06 22:06 | XMS_ITS | Encounter Summary ---
Author Organization [facility] Address [address] [facility] [address] [place] [address] Phone Care Team Providers Care Pelt Dropper Name Role Phone Zee Wang MD Unavailable [phone] Rose Schreiber UNDERWATER HUNTER TRAPPER Unavailable [phone] Ray Phoenix MD Unavailable [phone] Bigrit Mcnamara BODY MAKER MACHINE SETTER Unavailable Vicente Tolentino MD Primary Care Provider Vicente Tolentino MD Unavailable Elsi Torres RN Unavailable Elsi Torres RN Unavailable Elsi Torres RN Unavailable Vicente Tolentino MD Unavailable Jessica Parks Unavailable Reina MooreW Unavailable lizet Encounter Details Date Type Department Care Team (Late st Contact Info) Description 06/11/2020 Procedure Pass [facility], Ct Scan - [address] [address] Social History Tobacco Use Types Packs/Day Years [...] 7:00 PM EDT Glenda Cortez RN * [place] Suicide Severity Rating Scale (Screener/Recent Self-Report) Question [...] Description 12/30/2024 Procedure Pass Event Monitor [address] [place] [address] 01/02/2025 Procedure Pass [facility] [place] [address] 01/16/2025 10:30 AM EST Appointment Event Monitor [address] [place] [address] Yana Pichardo PA [address] [place] [phone] [email or web address] 03/01/2025 8:30 AM EST Appointment Echo [facility] [address] [place] [address] Vicente Tolentino MD [address] [place] [address] [phone] documented as of this encounter Visit Diagnoses Not on filedocumented in this encounter Care Teams Pelt Dropper Relationship Specialty Start Date End Date Vicente Tolentino MD [address] [place] [address], [address] [place] [address] PCP - General Family Medicine 01/12/17 Zee Wang MD [address] [place] [address], [address] [place] [address] Historical LMR Provider 12/02/16 2 Rose Schreiber NP [address] [place] [address] Historical LMR Provider 12/02/16 2 Ray Phoenix MD [address] [place] [address] Historical LMR Provider 12/02/16 2 Birgit Mcnamara CNP [address] [place] [address] [address] [place] [address] Historical LMR Provider 12/02/16 Vicente Tolentino MD [address] [place] [address] Insurance Assigned Provider 03/24/21 07/05/22 Elsi Torres RN [address] [place] [address] PHCM Bicycle Technician 05/14/21 10/08/21 Elsi Torres RN [address] [place] [phone] PHC Bicycle Technician 05/15/21 05/19/21 Elsi Torres RN [address] [place] [address] PHC Bicycle Technician 05/14/21 04/16/23 Vicente Tolentino MD [address] [place] [address] Insurance Assigned Provider 08/23/22 10/25/22 Jessica Parks [address] [place] [address] PHC Community Health Worker 09/09/22 12/08/22 Reina Moore, INSULATION EXTRUDER OPERATOR [address] [place] [phone] [email or web address] PHC Windsurfing Instructor 09/12/22 09/22/22 documented as of this encounter Additional Source Comments The information contained in this document represents components of the legal health record. It is not the complete legal health record.[facility]
--- OUTSIDE RECORDS SUMMARY | 2025-01-06 22:06 | XMS_ITS | Data Portability ---
Author Organization [place] [facility], [facility] Address [address] [place] [phone] Care Team Providers Care Medical Records Auditor Name Role Phone AISHAHARSHAL CATALAN Primary Care Provider [facility] ([facility] OTHER Assessment Encounter Date Assessment Date Assessment LastModified by Organization Details LastModified Time 05/16/2021 05/16/2021 Ms Rao is a new pt to whose CC is I think I am dehydrated . She has had diarrhea for many years, little worse yesterday and had nausea and vomiting yesterday, x 3 episodes. No N/V today. Na+ 139, K+ 4.1, Cl 108, Ca 1.27, CO2 20,Glu 106, BUN 15, Cr 0.6 HCT 38, Hgb 12.9 AG 16 all within normal limits. DDX considered but not limited to: IBS exacerbation, Colitis, diverticulitis, gastroenteritis , C Diff, Most likely this is continuation of her IBS D with perhaps exacerbation, the nausea and vomiting had stopped and she was able to eat and drink a gallon of water yesterday and has been eating and taking fluids today. She has had no fever, chills. She has not been on any recent antibiotics, no recent hospitalization s, no recent travel, most certainly no camping. On PE there is no abdominal pain, no dehydration, no peripheral edema, she has great distal cap refill, and good pulses. Gali was feeling much better after reassuring her about her normal Chem 8, and physical exam. Not available 05/16/2021 16:45:37 Plan of Treatment Reminders Order Date Submit Date Provider Last Modified By Organization Details Last Modified Time Details Appointments None recorded. Lab BMP + ionized calcium, serum or plasma 022 022 [facility], [address], [place], [address], 16:10:16 Referral None recorded. Procedures None recorded. Surgeries None recorded. Imaging None recorded. Medication Orders None recorded. Patient TargetsNo targets recorded. Patient InstructionsNo instructions recorded. Reason for Referral None Reported. Results Created Date Observation Date Name Description Value Unit Range Abnormal Flag Note LastModifiedBy Organization Detail LastModifiedTime 05/17/1905/16/2021 BMP + IONIZ ED CALCI UM, SERUM OR PLASM A glu 106 mg/dL 70-105 Not Available [address], [address], 05/16/2021 16:10:16 05/17/19 22 05/16/2021 BMP + IONIZ ED CALCI UM, SERUM OR PLASM A BUN 15 mg/dL 8-26 Not Available [address], [address], 05/16/2021 16:10:16 05/17/19 22 05/16/2021 BMP + IONIZ ED CALCI UM, SERUM OR PLASM A crea 0.6 mg/dL 0.6-1. 3 Not Available [address], [address], 05/16/2021 16:10:16 05/17/19 22 05/16/2021 BMP + IONIZ ED CALCI UM, SERUM OR PLASM A Na 139 mmol/ L 138-14 6 Not Available [address], [address], 05/16/2021 16:10:16 05/17/19 22 05/16/2021 BMP + IONIZ ED CALCI UM, SERUM OR PLASM A K 4.1 mmol/ L 3.5-4. 9 Not Available [address], [address], 05/16/2021 16:10:16 05/17/19 22 05/16/2021 BMP + IONIZ ED CALCI UM, SERUM OR PLASM A cL 108 mmol/ L 98-109 Not Available [address], [address], 05/16/2021 16:10:16 05/17/19 22 05/16/2021 BMP + IONIZ ED CALCI UM, SERUM OR PLASM A TCO2 20 mmol/ L 24-29 Not Available [address], [address], 05/16/2021 16:10:16 05/17/19 22 05/16/2021 BMP + IONIZ ED CALCI UM, SERUM OR PLASM A angap 16 mmol/ L 10-20 Not Available [address], [address], 05/16/2021 16:10:16 05/17/19 22 05/16/2021 BMP + IONIZ ED CALCI UM, SERUM OR PLASM A ica 1.27 mmol/ L 1.12-1 .32 Not Available [address], [address], 05/16/2021 16:10:16 05/17/19 22 05/16/2021 BMP + IONIZ ED CALCI UM, SERUM OR PLASM A HCT 38 %pcv 38-51 Not Available [address], [address], 05/16/2021 16:10:16 05/17/19 22 05/16/2021 BMP + IONIZ ED CALCI UM, SERUM OR PLASM A Hb 12.9 g/dL 12-17 Not Available [address], [address], 05/16/2021 16:10:16 Result Notes None recorded. Medical Equipment None Reported. Allergies Allergen ID Allergen Name Allergen Category Reaction Reaction Severity Criticality Documentation Date Start Date Code Code System Note Provider Name and Address Organization Details Recorded Time 748011 Product containin g penicilli n (product) medicatio n hives Not available Not available 05/16/2021 49475 8001 SNOMED All penic illin s SHON Medina [address], [place], [address], [place] [facility] 15:27:51 963736 erythromy ellen medicatio n hives Not available Not available 05/16/2021 4053 RxNorm SHON Medina [address], [place], [address], [place] [facility] 15:29:36 [id number] clindamyc in Not available hives Not available Not available 05/16/2021 2582 RxNorm C Diff SHON Medina [address], [place], [address], [place] [facility] 15:30:05 [id number] Oxycontin medicatio n itching Not available Not available 05/16/2021 68093 6 RxNorm SHON Medina [address], [place], [address], [place] [facility] 15:28:47 993839 oxycodone medicatio n itching Not available Not available 05/16/2021 7804 RxNorm SHON Medina [address], [place], [address], [place] [facility] 15:29:02 [id number] latex environme nt,medica tion anaphylax is Not available Not available 05/16/2021 71522 91 RxNorm SHON Medina [address], [place], [address], [place] [facility] 15:30:47 Medications Name Sig Start Date Stop Date Status Note LastModified by Organization Details LastModified Time cyclobenzap rine 10 mg tablet 05/16 completed Not Available Not Available Not Available nystatin 100,000 unit/mL oral suspension GARGLE AND SPIT 10 ML BY MOUTH 3 TO 4 TIMES A DAY 05/16 completed Not Available Not Available Not Available lamotrigine 200 mg tablet TAKE 3 TABLETS BY MOUTH AT BEDTIME active Not Available Not Available No t Available albuterol sulfate 2.5 mg/3 mL (0.083 %) solution for nebulizatio n INHALE 3ML 3 TIMES A DAY THROUGH NEBULIZAT ION ROUTE NEEDED active Not Available Not Available No t Available loperamide 2 mg capsule TAKE 1 TO 2 CAPSULES BY MOUTH FOUR TIMES DAILY 30 MINUTES BEFORE MEALS AND AT BEDTIME active Not Available Not Available No t Available trazodone 50 mg tablet TAKE 1-3 TABLETS AT NIGHT 05/16 completed Not Available Not Available Not Available azithromyci n 250 mg tablet TAKE 2 TABLETS BY MOUTH ON THE FIRST DAY THEN 1 TABLET DAILY FOR 4 ADDITIONA L DAYS 05/16 completed Not Available Not Available Not Available fluconazole 150 mg tablet TAKE 1 TABLET BY MOUTH ONCE FOR 1 DAY 05/16 completed Not Available Not Available Not Available sumatriptan 100 mg tablet TAKE 1 TABLET BY MOUTH AT ONSET OF MIGRAINE. MAY REPEAT 1 TIME. MAXIMUM IS 2 PILLS EVERY WEEK active Not Available Not Available No t Available midodrine 5 mg tablet active Not Available Not Available No t Available venlafaxine ER 150 mg capsule,ext ended release 24 hr TAKE 2 CAPSULES BY MOUTH EVERY DAY active Not Available Not Available No t Available diphenoxyla te-atropine 2.5 mg-0.025 mg tablet TAKE 2 TABLETS BY MOUTH FOUR TIMES DAILY NEEDED 05/16 completed Not Available Not Available Not Available prochlorper azine maleate 10 mg tablet TAKE 1 TABLET BY MOUTH TODAY AND THEN 1 TABLET BY MOUTH EVERY 6 HOURS NEEDED FOR NAUSEA OR MIGRAINE active Not Available Not Available No t Available omeprazole 40 mg capsule,del ayed release TAKE 1 CAPSULE BY MOUTH EVERY DAY. active Not Available Not Available No t Available butalbital- acetaminoph en-caffeine 50 mg-325 mg-40 mg tablet TAKE 1 TABLET BY MOUTH EVERY 4 HOURS NEEDED active Not Available Not Available No t Available Efudex 5 % topical cream APPLY A SUFFICIEN T AMOUNT TO COVER LESIONS TO THE AFFECTED AREA DAILY FOR 3 WEEKS active Not Available Not Available No t Available dextroamphe tamine-amph etamine 30 mg tablet TAKE 1 TABLET BY MOUTH TWICE A DAY 05/16 completed Not Available Not Available Not Available magnesium oxide 400 mg (241.3 mg magnesium) tablet TAKE 1 TABLET BY MOUTH EVERY DAY 05/16 completed Not Available Not Available Not Available lorazepam 0.5 mg tablet TAKE 1 TABLET BY MOUTH AT NIGHT NEEDED active Not Available Not Available No t Available gabapentin 800 mg tablet TAKE 2 TABLETS BY MOUTH TWICE DAILY active Not Available Not Available No t Available dicyclomine 20 mg tablet TAKE 1 TO 2 TABLETS BY MOUTH THREE TIMES DAILY active Not Available Not Available No t Available trazodone 150 mg tablet TAKE 2 TABLETS BY MOUTH EVERY DAY AT BEDTIME active Not Available Not Available No t Available dextroamphe tamine-amph etamine 20 mg tablet TAKE 1 TABLET BY MOUTH TWICE DAILY. active Not Available Not Available No t Available lidocaine 5 % topical patch APPLY 1 PATCH TOPICALLY TO THE SKIN EVERY DAY. MAY WEAR UP TO 12 HOURS active Not Available Not Available No t Available minocycline 50 mg capsule TAKE 1 CAPSULE BY MOUTH TWICE DAILY active Not Available Not Available No t Available ibuprofen 400 mg tablet TAKE 1 TABLET BY MOUTH EVERY 4 HOURS NEEDED active Not Available Not Available No t Available chromium picolinate 200 mcg tablet TAKE 4 TABLETS BY MOUTH EVERY DAY 05/16 completed Not Available Not Available Not Available montelukast 10 mg tablet TAKE 1 TABLET BY MOUTH EVERY DAY active Not Available Not Available No t Available epinephrine 0.3 mg/0.3 mL injection, auto-inject or INJECT IN THE MUSCLE NEEDED active Not Available Not Available No t Available lisinopril 40 mg tablet TAKE 1 TABLET BY MOUTH EVERY DAY active Not Available Not Available No t Available topiramate 100 mg tablet TAKE 2 TABLETS BY MOUTH TWICE DAILY active Not Available Not Available No t Available naratriptan 2.5 mg tablet TAKE 1 TABLET BY MOUTH 2 TIMES A WEEK NEEDED FOR MIGRAINE. MAY REPEAT IN 4 HOURS NEEDED active Not Available Not Available No t Available dicyclomine 10 mg capsule TAKE 1 TO 2 CAPSULES BY MOUTH FOUR TIMES DAILY NEEDED FOR ABDOMINAL BLOATING OR CRAMPS 05/16 completed Not Available Not Available Not Available naproxen 500 mg tablet TAKE 1 TABLET BY MOUTH TWICE DAILY NEEDED FOR PAIN 05/16 completed Not Available Not Available Not Available cholestyram ine (with sugar) 4 gram oral powder DISSOLVE 1 SCOOP IN LIQUID AND DRINK TWICE DAILY active Not Available Not Available No t Available ramelteon 8 mg tablet TAKE 1 TABLET BY MOUTH EVERY DAY AT BEDTIME 05/16 completed Not Available Not Available Not Available ProAir HFA 90 mcg/actuati on aerosol inhaler INHALE 2 PUFFS BY MOUTH EVERY 4 TO 6 HOURS NEEDED active Not Available Not Available No t Available Botox 200 unit injection active Not Available Not Available No t Available Vitals Date Recorded Respiratory rate Heart rate Oxygen saturation Body temperature Systolic And Diastolic Provider Name and Address Organization Details Last Updated DateTime 16 /min 77 /min 98 % 98.9 [degF] 168/92 mm[Hg] Not Available [facility] 15:31:13 Social History Question Answer Notes LastModified by Organizat ion Details LastModified Time Tobacco Smoking Status Never Smoker SHON Medina [address], [place], [address], [place] [facility] 05/16/2021 15:40:57 Do You Have An Advance Directive? Yes Son Is Health Care Proxy [email or web address] Information not available 05/16/2021 What Is Your Code Status? Full Code [email or web address] Information not available 05/16/2021 Within The Past 12 Months, Has It Happened That The Food You Bought Just Didn't Last And You Didn't Have Money To Get More. No [email or web address] Information not available 05/16/2021 Within The Past 12 Months, Have You Worried That Your Food Would Run Out Before You Got Money To Buy More. No [email or web address] Information not available 05/16/2021 Fall Risk: Do You Feel Unsteady When Standing Or Walking? No [email or web address] Information not available 05/16/2021 We Know That How And When People Interact With Friends And Family Can Be Very Different From Person To Person. How Often Do You Have The Opportunity To See Or Talk To People That You Care About And Feel Close To? (Ex: Talking To Friends On The Phone Or Visiting Friends Or Family Or Going To [employer] Or Club Meetings) 5 Or More Times Per Week [email or web address] Information not available 05/16/2021 Excessive Alcohol Or Drug Use No [email or web address] Information not available 05/16/2021 Does This Patient Have A PCP? Yes [email or web address] Information not available 05/16/2021 We Know From Many Of Our Patients That Covering All Of Their Costs Can Be Difficult At Times. This Can Cause Stress And Impact Health. In The Past Year, Have You Been Unable To Get Any Of The Following When It Was Really Needed? No [email or web address] Information not available 05/16/2021 What Is Your Housing Situation Today? I Have Housing [email or web address] Information not available 05/16/2021 Would You Like Help Connecting To Resources? None [email or web address] Information not available 05/16/2021 Sex: Unknown Functional Status Question Answer Note LastModified by [facility] Details LastModified Time Do you use any illicit or recreational drugs? No [email or web address] Information not available 05/16/2021 Do you or have you ever used any other forms of tobacco or nicotine? No [email or web address] Information not available 05/16/2021 What is your level of alcohol consumption? Occasional [email or web address] Information not available 05/16/2021 Mental Status None recorded. Family History Nothing Reported. Medical History Condition Response Diabetes N Coronary Artery Disease N CHF N Parkinson's Disease N Cancer Y Stroke N Dementia N Asthma Y Hypothyroidism N Depression Y COPD N Rheumatoid Arthritis N Pulmonary Embolism N Hypertension Y A-fib N Osteoporosis N Kidney Disease N Gynecological HistoryNo gynecological history recorded. Obstetrics History GPAL:G 0 P 0 0 0 0 Past Encounters Encounter ID Performer Location Encounter Start Date Encounter Closed Date Diagnosis/Indication Diagnosis SNOMED-CT Code Diagnosis ICD10 Code Diagnosis IMO Codes Diagnosis Note [id number] SHON Medina [facility] [address] [place] [address] 05/16/2021 14:46:17 05/18/2021 11:18:55 Diarrhea 19774815 R19.7 She always has diarrhea, she will be seeing GI tomorrow. She has been taking Immodium and Dicyclomin e which has been helpful. She had 3 episodes of watery stool today. No abdominal pain today, will be seeing GI tomorrow.B MP: entirely within normal limits Na+ 139, K+ 4.1, Cl 108, Ca 1.27, CO2 20,Glu 106, BUN 15, Cr 0.6 HCT 38, Hgb 12.9 AG 16 Nausea and vomiting 1692 1999 R11.2 yesterday had 3 episodes of vomiting, she drank a gallon of water yesterday and continues to drink today, no nausea or vomiting today.mm Health Concerns Section Related Observation LastModified by Organization Detai ls LastModified Time None Recorded Concern Status LastModified by Organization Details LastModified Time None Recorded Advance Directives Directive Y: son is health care proxy Payers Insurance Date Sequence Insurance Name Policy Number Policy [place] Covered Member ID [place] Member ID Guarantor Name 05/18/2021 1 [place] [facility] Gali Rao [id number] Gali Webster 03/20/2021 1 *SELF PAY* Gali Rao [id number] Gali Webster 05/20/2021 2 [place] [facility] Gali Rao [id number] Gali Webster 05/18/2021 1 [place] DOS PRIOR TO 2022 - [facility] (MEDICAID) Gali Rao [id number] Gali Webster Notes Date Note Type Note Provider Name and Address Organization Details Recorded Time 05/16/2021 text/html Ms. Rao was referred to by her Neurologist, her CC is severely dehydrated, she drank a gallon of water yesterday, she typically drinks coffee. Denies fever, she does not weigh herself because she has had an eating disorder in the past. Denies Sore throat, runny nose, ear pain she has had kind of a cough because my asthma has been bothering me . She has appointment tomorrow to see GI for ongoning abdominal pain and diarrhea. She sts she always has diarrhea, sometimes immediately after eating, Immodium not working. SHON Medina [address], [place], [address], [place] [facility] 05/16/2021 16:45:48 OBGyn Episode No OBEpisode recorded.
--- OUTSIDE RECORDS SUMMARY | 2025-01-06 22:06 | XMS_ITS | Patient Health Record ---
Author Organization [facility] Address [address] [place] [address] Care Team Providers Care Loin Trimmer Name Role Phone Vicente Tolentino MD Primary Care Provider Donald Saenz Unavailable [phone] Allergies Allergen (clinical drug ingredient) Drug/Non Drug Allergy documented on EMR Reaction Allergy Type Onset Date Status Latex latex (uncoded) Unknown Allergy Acti ve cephalexin Cephalexin Unknown Drug Allergy Activ e clindamycin Clindamycin HCl Unknown Drug Allergy Active erythromycin Erythromycin Base Unknown Drug Allergy Active Iodine Unknown Drug Allergy Active nifedipine NIFEdipine Unknown Drug Allergy Activ e oxycodone OxyContin Unknown Drug Allergy Active penicillin G Penicillin G Sodium Unknown Drug Allergy Active terazosin Terazosin HCl Unknown Drug Allergy Act philippe verapamil Verapamil HCl Unknown Drug Allergy Act philippe Vicodin Unknown Drug Allergy Active doxycycline Doxycycline Unknown Drug Allergy Act philippe Reason For Referral No Information Medications Medication SIG (Take, Route, Frequency, Duration) Notes Start Date End Date Status Dicyclomine HCl 10 MG Capsule 1-2 Orally QID prn abdominal bloating or cramps; Duration: 30 day(s) 05/25/2020 Active Ibuprofen Active Loperamide HCl 2 MG Capsule 1 or 2 Orall y QID--take 1 or 2 30 minutes before meals and QHS; Duration: 30 days 05/25/2020 Active Tylenol Active Biotin Active Multivitamin Active Topiramate Active Albuterol Sulfate HFA Active Prochlorperazine Maleate Active Adderall 10 MG Tablet 1 tablet Orally Tw ice a day Active Adderall Active Fioricet PRN Active Minocycline HCl Acti ve Loperamide HCl Activ e Gabapentin Active Chromium Picolinate Active Magnesium Oxide Acti ve Lisinopril Active Montelukast Sodium A ctive Cholestyramine Activ e Omeprazole Active Potassium Chloride ER Active lamoTRIgine Active hydroCHLOROthiazide Active Effexor Active Singulair Active Fluconazole Active Immunizations Vaccine Route Administration Date Status Comme nts Influenza Unknown 11/30/2019 Administered Social History Tobacco Use: Social History Observation Description Date Details (start date - stop date) Never Smoker NA - NA Social History Drugs/Alcohol: Social Info Question Answer Notes Alcohol Screen Did you have a drink containing alcohol in the past year? No Points 0 Interpretation Negative Tobacco Use: Social Info Question Answer Notes Tobacco Use/Smoking Patient is a nonsmoker Additional Details Category Social Info Options Details Miscellaneous: Marital status: Occupation: AGRICULTURAL RESEARCHER Caffeine: 2-3 cups per day Section Notes: Nonsmoker; no sig alcohol Problems Problem Type SNOMED Code ICD Code Onset Dates Problem Status W/U Status Risk Notes Problem Irritable bowel syndrome with diarrhea (268029057) Irritable bowel syndrome with diarrhea (K58.0) Active confirmed Problem Diarrhea (79349290) Diarrhea, unspecified type (R19.7) Active confirmed Problem History of ischemic colitis (8000399569333 102) History of ischemic colitis (Z87.19) Active confirmed Plan Of Treatment Pending Test Test Name Order Date LIVER PROFILE 05/25/2020 CRP 05/25/2020 CBC w DIFF 05/25/2020 SED RATE (ESR) 05/25/2020 CELIAC PANEL #10 05/25/2020 TSH reflex Free T4 05/25/2020 Insurance Providers Payer Name Payer Address Payer Phone Subscriber Number Group Number Insured Name Patient Relationship to Insured Coverage Start Date Coverage End Date [place] [id number] ANTHONY WEBSTER Self - patient is the insured Medical (General) History Medical History History ICD Code Asthma Hypertension Allergic rhinitis Depression Migraine headaches PTSD Chronic Fatigue Syndrome Probable COVID in 2019-pneumonia but neg . COVID test Denies AK,DM,CVA,renal disease Reported episodes of ischemi c colitis in 2017 and 10/2019 for which she underwent colonoscop[facility] at [facility] both times IBS with diarrhea Surgical History Surgery Date(Month/Year) Lumbar fusion---had an anterior approach through her abdomen 1995 Knee surgery - right x 3
--- OUTSIDE RECORDS SUMMARY | 2025-01-06 22:06 | XMS_ITS | Encounter Summary ---
Author Organization [facility] Address [address] [facility] [address] [place] [address] Phone Care Team Providers Care Grain Handler Name Role Phone Zee Wang MD Unavailable [phone] Rose Schreiber COMMERCIAL SALES SPECIALIST Unavailable [phone] Ray Phoenix MD Unavailable [phone] Birgit Mcnamara SHANK CUTTER Unavailable [phone] Vicente Tolentino MD Primary Care Provider Vicente Tolentino MD Unavailable Elsi Torres RN Unavailable Elsi Torres RN Unavailable Elsi Torres RN Unavailable Vicente Tolentino MD Unavailable [phone] Jessica Parks Unavailable Reina Moore TRANSIT BUS OPERATOR Unavailable lizet Encounter Details Date Type Department Care Team (Late st Contact Info) Description 10/27/2019 Procedure Pass [facility] Endoscopy Admitting Dept Virtual Department [address] [place] [address] [phone] Social History Tobacco Use Types Packs/Day Years [...] PM EDT documented as of this encounter Plan of Treatment Upcoming Encounters Date Type Department Care Team (Late st Contact Info) Description 12/30/2024 Procedure Pass Event Monitor [address] [place] [address] [place] [address] 01/02/2025 Procedure Pass [facility] [address] [address] 01/16/2025 10:30 AM EST Appointment Event Monitor [address] [place] [address] Yana Pichardo PA [address] [place], [place] [phone] [email or web address] 03/01/2025 8:30 AM EST Appointment Echo Lab [address] [address] Vicente Tolentino MD [address] [place] [address] [phone] [email or web address] documented as of this encounter Visit Diagnoses Not on filedocumented in this encounter Care Teams Grain Handler Relationship Specialty Start Date End Date Vicente Tolentino MD [address] [place] [address], [address] [address] [email or web address] PCP - General Family Medicine 01/12/17 Zee Wang MD [address] [place] [address], [address] [place] [address] Historical LMR Provider 12/02/16 2 Rose Schreiber, COMMERCIAL SALES SPECIALIST [address] [place] [address] Historical LMR Provider 12/02/16 2 Ray Phoenix MD [address] [place] [address] Historical LMR Provider 12/02/16 2 Birgit Mcnamara CNP [address] [place] [address], [address] [place] [address] [email or web address] Historical LMR Provider 12/02/16 Vicente Tolentino MD [address] [place] [address] Insurance Assigned Provider 03/24/21 07/05/22 Elsi Torres RN [address] [place] [address] [facility] Physical Metallurgist 05/14/21 10/08/21 Elsi Torres RN [address] [place] [address] [facility] Physical Metallurgist 05/15/21 05/19/21 Elsi Torres RN [address] [place] [address] [facility] Physical Metallurgist 05/14/21 04/16/23 Vicente Tolentino MD [address] [place] [address] Insurance Assigned Provider 08/23/22 10/25/22 Jessica Parks 10 [place] [address] [email or web address] PHCM Community Health Worker 09/09/22 12/08/22 Reina Moore LCSW 10 [place] [address] [email or web address] PHC Purchasing Manager/Sales 09/12/22 09/22/22 documented as of this encounter Additional Source Comments The information contained in this document represents components of the legal health record. It is not the complete legal health record.[facility]
--- OUTSIDE RECORDS SUMMARY | 2025-01-06 22:06 | XMS_ITS | Encounter Summary ---
Author Organization [facility] Address [address] [facility] [address] [place] [address] Phone Care Team Providers Care Yard Foreman Name Role Phone Zee Wang MD Unavailable [phone] Rose Schreiber AGRONOMY ADVISOR Unavailable [phone] Ray Phoenix MD Unavailable [phone] Birgit Mcnamara POLITICAL WORKER Unavailable [phone] Vicente Tolentino MD Primary Care Provider Vicente Tolentino MD Unavailable Elsi Torres RN Unavailable Elsi Torres RN Unavailable Elsi Torres RN Unavailable Vicente Tolentino MD Unavailable Jessica Parks Unavailable Reina MooreW Unavailable lizet Encounter Details Date Type Department Care Team (Late st Contact Info) Description 10/26/2019 Procedure Pass [facility] Scan - [address] [address] Social History Tobacco Use Types Packs/Day Years [...] Info) Description 12/30/2024 Procedure Pass Event Monitor [address] [place] [address] [place] [address] 01/02/2025 Procedure Pass Echo [facility] [address] [place] [address] 01/16/2025 10:30 AM EST Appointment Event Monitor [address] [place] [address] [place] [address] Yana Pichardo PA [address] [place], [place] [phone] [email or web address] 03/01/2025 8:30 AM EST Appointment Echo Lab [address] [address] Vicente Tolentino MD [address] [place] [address] [phone] [email or web address] documented as of this encounter Visit Diagnoses Not on filedocumented in this encounter Care Teams Yard Foreman Relationship Specialty Start Date End Date Vicente Tolentino MD [address] [place] [address], [address] [place] [address] PCP - General Family Medicine 01/12/17 Zee Wang MD [address] [place] [address], [address] [place] [address] Historical LMR Provider 12/02/16 2 Rose Schreiber, AGRONOMY ADVISOR [address] [place] [address] Historical LMR Provider 12/02/16 2 Ray Phoenix MD [address] [place] [address] Historical LMR Provider 12/02/16 2 Birgit Mcnamara CNP [address] [place] [address], [address] [place] [address] [email or web address] Historical LMR Provider 12/02/16 Vicente Tolentino MD [address] [place] [address] [email or web address] Insurance Assigned Provider 03/24/21 07/05/22 Elsi Torres RN [address] [place] [address] [facility] Preventive Medicine Officer 05/14/21 10/08/21 Elsi Torres RN [address] [place] [address] [facility] Preventive Medicine Officer 05/15/21 05/19/21 Elsi Torres RN [address] [place] [address] [facility] Preventive Medicine Officer 05/14/21 04/16/23 Vicente Tolentino MD [address] [place] [address] [email or web address] Insurance Assigned Provider 08/23/22 10/25/22 Jessica Parks 10 [place] [address] PHCM Community Health Worker 09/09/22 12/08/22 Reina Moore LCSW 10 [place] [address] [email or web address] PHCM Residential Fee Appraiser 09/12/22 09/22/22 documented as of this encounter Additional Source Comments The information contained in this document represents components of the legal health record. It is not the complete legal health record.[facility]
--- OUTSIDE RECORDS SUMMARY | 2025-01-06 22:06 | XMS_ITS | Encounter Summary ---
Author Organization [facility] Address [address] [facility] [address] [place] [address] Phone Care Team Providers Care Upholsterer Helper Name Role Phone Zee Wang MD Unavailable [phone] Rose Schreiber CONCRETE POURER Unavailable [phone] Ray Phoenix MD Unavailable Birgit Mcnamara NON DESTRUCTIVE TESTING SUPERVISOR Unavailable [phone] Vicente Tolentino MD Primary Care Provider Vicente Tolentino MD Unavailable Elsi Torres RN Unavailable Elsi Torres RN Unavailable Elsi Torres RN Unavailable Vicente Tolentino MD Unavailable [phone] Jessica Parks Unavailable Reina Moore SAILING OFFICER Unavailable lizet Encounter Details Date Type Department Care Team (Late st Contact Info) Description 01/31/2020 Transcribe Orders Virtual Department [address] [place] [address] Vicente Tolentino MD [address] [place] [address] Diplopia (Primary Dx); Paresthesias; Fall, initial encounter Social History Tobacco Use Types Packs/Day Years [...] Info) Description 12/30/2024 Procedure Pass Event Monitor [address] [place] [address] [place] [address] 01/02/2025 Procedure Pass Echo Lab [address] [place] [address] 01/16/2025 10:30 AM EST Appointment Event Monitor [address] [place] [address] [place] [address] Yana Pichardo PA [address] [place] [address] [email or web address] 03/01/2025 8:30 AM EST Appointment Echo Lab [address] [place] [address] Vicente Tolentino MD [address] [place], [place] [phone] [email or web address] documented as of this encounter Visit Diagnoses Diagnosis Diplopia- Primary Paresthesias Disturbance of skin sensation Fall, initial encounter documented in this encounter Care Teams Upholsterer Helper Relationship Specialty Start Date End Date Vicente Tolentino MD [address] [place] [address], [address] [place] [address] [email or web address] PCP - General Family Medicine 01/12/17 Zee Wang MD [address] [place] [address], [address] [place] [address] Historical LMR Provider 12/02/16 2 Rose Schreiber NP [address] [place] [address] Historical LMR Provider 12/02/16 2 Ray Phoenix MD [address] [place] [address] Historical LMR Provider 12/02/16 2 Birgit Mcnamara CNP [address] [place] [address], [address] [place] [address] Historical LMR Provider 12/02/16 Vicente Tolentino MD [address] [place] [phone] Insurance Assigned Provider 03/24/21 07/05/22 Elsi Torres RN [address] [place] [address] PHCM Glassware Finisher 05/14/21 10/08/21 Elsi Torres RN [address] [place] [address] PHCM Glassware Finisher 05/15/21 05/19/21 Elsi Torres RN [address] [place] [address] PHCM Glassware Finisher 05/14/21 04/16/23 Vicente Tolentino MD [address] [place] [phone] [email or web address] Insurance Assigned Provider 08/23/22 10/25/22 Jessica Parks [address] [place] [email or web address] PHCM Community Health Worker 09/09/22 12/08/22 Reina Moore LCSW [address] [place] [address] [email or web address] PHC Stone Polisher 09/12/22 09/22/22 documented as of this encounter Additional Source Comments The information contained in this document represents components of the legal health record. It is not the complete legal health record.[facility]
--- OUTSIDE RECORDS SUMMARY | 2025-01-06 22:06 | XMS_ITS | Clinical Summary ---
Author Organization [facility] Address [address] [place] [phone] Phone Care Team Providers Care Retail Equipment Associate Name Role Phone Harshal Shafer MD Primary Care Provider Allergies Active Allergy Reactions Criticality Noted Date Comments Codeine 01/12/2017 Erythromycin 01/12/2017 Latex, Natural Rubber 01/12/2017 Nifedipine Swelling 01/12/2017 Oxycodone 01/12/2017 Penicillins 01/12/2017 Verapamil Swelling 01/12/2017 Hydrocodone-Acetaminophen Itching 01/12/2017 Medications prochlorperazi ne (COMPAZINE) 10 MG tablet Take 10 mg by mouth 3 (three) times a day as needed for nausea. 04/19/19 14 Active butalbital-demarcus taminophen-caf feine (FIORICET, ESGIC) 50-325-40 mg per tablet Take 1 tablet by mouth every 4 (four) hours as needed for pain (specific location in comments) or headache. Active PROAIR HFA 90 mcg/actuation inhaler INHALE 2 PUFFS BY MOUTH EVERY 4 TO 6 HOURS IF NEEDED 1 07/22/19 19 Active LORazepam (ATIVAN) 0.5 MG tablet Take 0.5 mg by mouth as needed for anxiety. Rarely uses 0 08/07/19 19 Active minocycline (MINOCIN) 50 MG capsule Take 50 mg by mouth. 2 07/17/19 19 Active montelukast (SINGULAIR) 10 mg tablet Take 10 mg by mouth daily. 11 06/02/20 19 Active EPINEPHrine 0.3 mg/0.3 mL auto-injector INJECT INTRAMUSCULARLY NEEDED 0 08/25/19 Active lamoTRIgine (LAMICTAL) 200 MG tablet Take 200 mg by mouth daily. 11/21/19 Active omeprazole (PRILOSEC) 40 MG capsule Take 40 mg by mouth nightly at bedtime. 11/27/19 Active lisinopril (PRINIVIL,ZEST RIL) 5 MG tablet Take 1 tablet (5 mg total) by mouth daily. 30 tablet 5 12/19/19 Active Additional Information Patient not taking.Reported on 12/20/2024 venlafaxine (EFFEXOR-XR) 150 MG 24 hr capsule 12/15/19 Active topiramate (TOPAMAX) 100 MG tablet Take 200 mg by mouth 2 (two) times a day. Active dextroamphetam ine-amphetamin e (ADDERALL) 20 mg Tab tablet Take 20 mg by mouth 3 (three) times a day. Active loperamide (IMODIUM) 2 mg capsule Take 1 capsule (2 mg total) by mouth 4 (four) times a day as needed for diarrhea. 60 capsule 06/14/19 Active loperamide (IMODIUM) 2 mg capsule Take 2 capsules (4 mg total) by mouth 3 (three) times a day with meals. 60 capsule 06/14/19 Active Additional Information Patient not taking.Reported on 12/20/2024 midodrine (PROAMATINE) 5 MG tablet Take 1 tablet (5 mg total) by mouth 3 (three) times a day before meals. 90 tablet 06/14/19 21 Active dicyclomine (BENTYL) 10 MG capsule TAKE 1 TO 2 CAPSULES BY MOUTH FOUR TIMES DAILY NEEDED FOR ABDOMINAL BLOATING OR CRAMPS 09/15/19 Active SUMAtriptan (IMITREX) 100 MG tablet TAKE 1 TABLET BY MOUTH AT ONSET OF MIGRAINE. MAY REPEAT 1 TIME. MAXIMUM IS 2 PILLS EVERY WEEK 10/12/19 21 Active traZODone (DESYREL) 150 MG tablet TAKE 2 TABLETS BY MOUTH EVERY DAY AT BEDTIME 10/09/19 21 Active naproxen (NAPROSYN) 500 MG tablet Take 1 tablet (500 mg total) by mouth 2 (two) times a day with meals. 20 tablet 10/23/19 21 Active gabapentin (NEURONTIN) 300 MG capsule Take 300 mg by mouth daily. Active ondansetron (ZOFRAN) 4 MG tablet Take 4 mg by mouth every 8 (eight) hours as needed for nausea. Active Active Problems Problem Noted Date Diagnosed Date Abnormal ECG 10/28/2019 Assessment & Plan (12/05/2019 5:36 PM EDT): Her QTC is again prolonged today at 501 ms and I suspect this is due to her many different medications. I have asked her to stop her nortriptyline and to also stop using Compazine for now. Her electrolytes and thyroid function have been normal recently and reviewing her prior ECG from 2010 shows a difficult to clearly delineate QT but QTC on my read of 460 ms. I suspect her QT change is related to medications. She also does have chronic dyspnea on exertion and given her syncope chronic dyspnea exertion and daily prolongation, will get a stress test to rule out ischemia as the cause as well Essential hypertension 01/13/2017 Assessment & Plan (06/11/2020 7:40 PM EDT): -When lying down blood pressure is mildly elevated, continue lisinopril for now but hold hydrochlorothiazide Assessment & Plan (01/06/2020 8:17 AM EST): Blood pressure goal of less than 130/90. She has history of hypotension in the past. She was found to be severely hypertensive on 12/14/2019 in the range of 220/120 and started on lisinopril 5 mg on 12/19/2019. She is not very clear about her current medication regimen. We will have our office call her today at 11 AM at home to clarify her list of medications. I also asked her to get BMP in our lab now. Once we have her current list of medications and lab results we will adjust her medications. Assessment & Plan (12/19/2019 4:30 PM EST): Since her vasovagal episode, her blood pressure has become severely elevated now. We will restart lisinopril at 5 mg once daily and we will have her come back in 2 weeks for a blood pressure visit with a ENERGY AND SUSTAINABILITY MANAGER. I have asked her to get a Chem-7 in 2 weeks to document her creatinine and potassium has been normal on lisinopril. I suspect we will have to increase this medication but given her episode of hypotension in the past, we will increase it slowly Assessment & Plan (10/27/2019 5:24 PM EDT): BP stable. Cont to hold antihypertensive medications D/c hypotension Assessment & Plan (01/13/2017 9:12 AM EST): We held her BP meds on admission bc she was hypotensive coming in, now HTN SBP 170-190 mmHg. Caution because working diagnosis is ischemic colitis due to hypotension. Will resume lisinopril at lower than home dose for now. Major depressive disorder 01/13/2017 Assessment & Plan (06/11/2020 7:41 PM EDT): -Continue Effexor Assessment & Plan (01/13/2017 2:33 PM EST): Continued home psych meds effexor, lamictal. She asked for trazodone for sleep; ordered as prn. Our pharmacist mentioned the risk of serotonin syndrome with this combination, ok to try tonight, but to keep in mind / monitor. She recommended zyprexa as an alternate but agreed we could try trazodone tonight. Per her pharmacy she was regularly taking topamax 500 mg at HS but she recently took herself off this because she was taking it for migraines and feels it is giving her headaches. Resolved Problems Problem Noted Date Diagnosed Date Resolved Date Orthostatic hypotension 06/11/202005/18 Assessment & Plan (06/12/2020 5:12 PM EDT): Starting midodrine MAGO (acute kidney injury) 10/27/2019 Assessment & Plan (10/27/2019 12:14 AM EDT): Doubling of creatinine with hypotensive episode and thereafter receiving CT Angio dye. We will continue IVF at 125/hr to prevent contrast nephropathy. I have given her gabapentin home does tonight, but if creatinine elevated tomorrow dose adjustment will need to be made Hold her BP meds as well. Syncope and collapse 10/26/201906/13/2 021 Assessment & Plan (06/12/2020 5:12 PM EDT): Start midodrine and follow postural hypotension measurements Assessment & Plan (12/19/2019 4:29 PM EST): She is picking up a 30-day monitor today to rule out any ventricular arrhythmias. Her nuclear stress test did not show any ischemia and the QTC on that test was notable to be 450 ms. Her episode was likely a vasovagal episode but if her monitor is unremarkable, we will get a ILR placed. Assessment & Plan (12/05/2019 5:37 PM EDT): Her syncope is difficult to characterize. She has had multiple episodes of syncope now including at least 2 that were in the presence of medical personnel and did not have an arrhythmia at the time. I suspect it is due to vasovagal syncope although it is concerning that she does not always have a prodrome. We will get a 30-day monitor. Was also noted that she has not intraventricular septum 19 mm on her echocardiogram though no LVOT obstruction. We will get a cardiac MRI to rule out HCM though she has no family history of HCM or sudden cardiac . She notes she is only taking the metoprolol 25 mg once a day and I will have her change to metoprolol 25 mg XL once a day so that she has a longer acting benefit. If she has an unremarkable workup, can consider ILR Assessment & Plan (10/27/2019 5:23 PM EDT): Case was discussed with cardiology. Unclear if symptoms were from long qtc or vasovagal. I suspect vasovagal -defecation syncope. Dr Marvin recommended low dose bb to prevent vasovagal syncope -monitor Bacteremia 01/13/2017 01/15/2017 Assessment & Plan (01/14/2017 10:26 AM EST): One out of 4 blood culture bottles growing staph coag negative. Vancomycin which was initially started as been discontinued Assessment & Plan (01/13/2017 6:04 PM EST): 1/ blood culture bottles from yesterday growing GPC, will await other cultures. AFebrile, WBC stable / tending down. Most likely a contaminant. Sent surveillance cultures, but will treat with IV Vancomycin until proven contaminant. Hypotension 01/12/2017 01/15/2017 Assessment & Plan (01/14/2017 10:24 AM EST): IV fluid support continues, along with potassium for her hypokalemia. Blood pressures improved Assessment & Plan (01/13/2017 2:36 PM EST): She reports her diarrhea didn't start until the day of admission, so it is difficult to imaging she become hypovolemic and hypotensive from that alone. She has a stable Hgb, not significantly bleeding. Will check TSH, cortisol in the morning looking for potential other causes of hypotension. Ischemic colitis 01/12/2017 06/13/2020 Assessment & Plan (06/12/2020 5:11 PM EDT): CT does not show current evidence of ischemic colitis. She probably has a component of irritable bowel syndrome that is symptomatically improved with loperamide but she needs a cheaper alternative. It is available through [employer] for $6 for 24 capsules of 2 mg. Assessment & Plan (10/27/2019 5:26 PM EDT): Colonoscopy confirms ischemic colitis due to hypotension. MAGO resolved. -will cont to monitor Assessment & Plan (01/14/2017 10:24 AM EST): Workup to date including CT scan, C. difficile, routine stool cultures all negative. Colonoscopy 2016 negative. Seen by GI, Dr. Alvarez this may be ischemic colitis. Perhaps this explains acute presentation as his company by hypotension and syncope however would not explain her chronic history of loose stools. Conservative management, pain control and clear liquid diet is recommended for now Patient has been on Lamictal times years, and patient unclear but thinks her diarrheal illness started after the Lamictal. She agrees to a trial of tapering off her Lamictal. Dose is decreased on 01/14 from 300 twice a day down to 150 twice a day. [facility] to try to gather further data as to timing of diarrheal illness and initiation of her Lamictal Assessment & Plan (01/13/2017 2:34 PM EST): Per Dr. Alvarez's note, he suspects severe ischemic colitis due to hypotension, vs infectious colitis pending stool studies. CT seemed to show patent arterial gut vessels. Will avoid hypotension. C diff negative. Other usual stool studies sent and pending. Zofran and morphine prn for nausea and abdominal cramping. Pain worse last night, she required dilaudid. Diet advancing to clears. Potassium is low normal; given ongoing diarrhea, will replete with 20 meq IV potassium peripherally. Syncope 01/12/2017 01/15/2017 Assessment & Plan (01/14/2017 10:25 AM EST): Secondary to documented hypotension. Not cardiogenic Assessment & Plan (01/12/2017 9:29 AM EST): Due to hypotension, orthostasis. She was having a (liquid) BM the first time she fainted, and was trying to stand up to leave the bathroom when syncopized the second time. Hit her head; CT head negative. Will check orthostatics before liberalizing her activity from bedrest. Should be improved since IVF resuscitation. Leukocytosis 01/12/2017 01/15/2017 Assessment & Plan (01/14/2017 10:25 AM EST): Nonspecific indicator of inflammation. Elevated and Essentially unchanged since admission Assessment & Plan (01/13/2017 6:03 PM EST): As I mentioned, C diff is negative. Stool cultures pending. One out of 4 blood culture bottles from 01/12 growing GPC. Likely a contaminant, resent surveillance cultures, but will use IV vancomycin to treat until proven contaminant. She denies any infectious symptoms prior to admission. Encounters Date Type Department Care Team Description 01/02/2025 Transcribe Orders [facility] [address] [place] [address] Patel Sweet Dyspnea, unspecified type (Primary Dx) 12/30/2024 Transcribe Orders [facility] [address], [address] [place] [address] Patel Sweet Prolonged QT syndrome (Primary Dx) 12/20/2024 3:30 PM EST Office Visit [facility] at [address] [address] Alissa Calloway, ZAYDA Duran, Raji Diaz PA-C Fatigue, unspecified type (Primary Dx); Weakness; Chest tightness from Last 3 Months Immunizations Immunization Administration Dates Next Due COVID-19 (Pre-12/08) Pfizer Vaccine, mRNA, PF 03/21/2020,02/29/2020 INFLUENZA, SPLIT VIRUS, TRIV ALENT W/ PRESERVATIVE IM 12/10/2010 Influenza Quadrivalent Prese rvative Free IM 10/28/2019,12/28/2018,11/21/2016 Influenza trivalent preserva tive free intradermal 12/18/2011 Influenza, Unspecified Formulation 12/22,12/16/2013,11/16/2012,11/20,12/20/2007,03/18/2007,01/23/2006 ,03/04/2004 Novel [id number], Injectable 02/20/2009 Pneumococcal conjugate, PCV 7 12/22/2016 Pneumococcal polysaccharide PPSV23 11/26/2016 Td (adult) 5 Lf Tetanus Toxo id, PF, Adsorbed 03/26/2009 Family History Medical History Relation Comments Diabetes Father Heart disease Father Diverticulitis Mother Heart disease Mother Oral cancer Mother No Known Problems Son Relation Status Comments Father Mother Son Alive Social History Tobacco Use Types Packs/Day Years Used Date Smoking Tobacco: Never Smokeless Tobacco: Never Alcohol Use Standard Drinks/Week Comments No 0 (1 standard drink = 0.6 oz pure alcohol) maybe every 6 months I'll have a glass of wine Education Answer Date Recorded Are you interested in more education? Not on eloina e 06/13/2022 Are you concerned about learning? Not on file 06/13/2022 No 06/13/2022 No 06/13/2022 Digital Access Answer Date Recorded No 07/10/2022 No 07/10/2022 Reliable internet access at home? Not on file 07/10/2022 Device with a working camera? Not on file Comments No Sex and Gender Information Value Date Recorded Sex Assigned at Female 02/23/2017 9:38 AM EST Legal Sex Female 9:42 PM EDT Gender Identity Female 04/13/2017 4:37 PM EST Sexual Orientation Straight 10/26/2019 11 :53 PM EDT Last Filed Vital Signs Vital Sign Reading Time Taken Comments Blood Pressure 123/81 12/20/2024 3:41 PM EST Pulse 96 12/20/2024 3:41 PM EST Temperature 36.7 C (98 F) 12/20/2024 3:41 PM EST Respiratory Rate 12 12/20/2024 3:41 PM EST Oxygen Saturation 98% 12/20/2024 3:41 PM EST Inhaled Oxygen Concentration - - Weight 67.3 kg (148 lb 5.9 oz) 06/11/2020 6:02 P M EDT Height 165.1 cm (5' 5 ) 06/11/2020 6:02 PM EDT Body Mass Index 24.69 06/11/2020 6:02 PM EDT Plan of Treatment Upcoming Encounters Date Type Department Care Team (Late st Contact Info) Description 12/30/2024 Procedure Pass [facility] [address] [place] [address] [place] [address] 01/02/2025 Procedure Pass [facility] [place] [address] 01/16/2025 10:30 AM EST Appointment [facility] [place] [address] Yana Pichardo PA [address] [place] [id number] [email or web address] 03/01/2025 8:30 AM EST Appointment [facility] [place] [address] Harshal Shafer MD [address] [place] [address] Health Maintenance Due Date Last Done Comments HEPATITIS C SCREENING 10/20/1981 HIV ONE-TIME SCREENING (18-65 YEARS) 10/20/1981 PAP SMEAR 10/20/1984 MAMMOGRAM 2003 COLOGUARD 10/20/2008 FIT TEST 10/20/2008 SIGMOIDOSCOPY 10/20/2008 VIRTUAL COLONOSCOPY 10/20/2008 ZOSTER VACCINES (1 of 2) 10/20/2013 PNEUMOCOCCAL VACCINES (50+ years) (2 of 2 - PCV) 11/26/2017 11/26/2016 FOBT 01/14/2018 01/14/2017 CREATININE LEVEL 06/12/2021 06/12/2020, , 10/28/2019, Additional history exists POTASSIUM LEVEL 06/12/2021 06/12/2020, 05/18, 10/28/2019, Additional history exists DEPRESSION SCREENING 06/19/2022 06/19/2021 INFLUENZA VACCINE (#1) 2024 , 12/18/2020, 10/28/2019, Additional history exists COVID-19 VACCINE (2024- season) 2024 03/07/2021, 03/21/2020, 02/29/2020 BLOOD PRESSURE 06/19/2025 12/20/2024 LIPID PANEL 11/20/2026 11/20/2021, 10/27/2019 COLONOSCOPY 10/25/2030 10/25/2020, 10/27/2019 COLORECTAL CANCER SCREENING 10/25/2030 Adult Td,Tdap Booster 12/18/2030 12/18/2020, 010 RSV VACCINE (1 - 1-dose 75+ series) 10/20/2038 SMOKING STATUS SCREENING (Once After 26 Yrs) Completed 06/19/2021 HEPATITIS A VACCINES Aged Out No long er eligible based on patient's age to complete this topic HIB VACCINES Aged Out No longer eligi ble based on patient's age to complete this topic MENINGOCOCCAL VACCINES (ACWY) Aged Out No longer eligible based on patient's age to complete this topic MENINGOCOCCAL VACCINES (B) Aged Out N o longer eligible based on patient's age to complete this topic Medical Devices Implanted Type Area Mailroom Personnel Device Identifier Shelf Expiration Date Model / Serial / Lot Cage Cage Back Description:Alloy cage in ba ck Procedures Procedure Name Priority Date/Time Associated Diagnosis Comments POCT GLUCOSE Routine 12/20/2024 4:25 PM EST Weakness ENDOSCOPY, COLON 10/25/2020 11:1 5 AM EDT BASIC METABOLIC PANEL (BMP) Routine 06/12/2020 5:43 AM EDT LIPID PANEL Routine 10/27/2019 5:40 AM EDT FECAL OCCULT BLOOD, MULTIPLE Routine 01/14/2017 8:39 PM EST from Last 3 Months or Most Recently Relevant to Health Maintenance Results * (ABNORMAL) POCT Glucose (Enter/Edit) (12/20/2024 4:25 PM EST) [facility] Signature Glucose 106(A) 70 - 100 mg/dL [facility] 12/20/2024 4:25 PM EST Raji Duran PA-C LAB POCT E NTER/EDIT ORDERABLES Final Result [facility] [place] [id number], [facility] [phone] * ENDOSCOPY, COLON (10/25/2020 11:15 AM EDT) Narrative Transcriptions Nadeem Johnson MD - 10/25/2020 11:15 AM EDT Patient Name: Gali Rao Attending MD:: NADEEM JOHNSON MD Procedure Date: 10/25/2020 11:15 AM Date of : 1965 Age: 55 Admit Type: Outpatient Gender: Female Room: [facility] 02 Referring MD: HARSHAL SHAFER MD Exam Type: Colonoscopy Indications: Chronic diarrhea Medications: Monitored Anesthesia Care Procedure: Informed consent was obtained from the patient after discussion of the indications, limitations, alternatives, benefits, and risks of the procedure. Risks specifically discussed include but are not limited to medication reactions, missed lesions, bleeding, perforation, or the need for emergentsurgery. Throughout the procedure, the patient's bloodpressure, pulse, end-tidal CO2, and oxygen saturations were monitored continuously. The Olympus adult variable colonoscope [id number] #6was introduced through the anus and advanced to the terminal ileum, with identification of theappendiceal orifice and IC valve. The colonoscopy was performed without difficulty. The patient tolerated theprocedure well. The quality of the bowel preparation wasgood. Complications: No immediate complications. Estimated blood loss:None. Findings: The terminal ileum appeared normal. This wasbiopsied with a cold forceps for histology. Multiple diverticula were found in the sigmoidcolon. Examination of the right colon was repeated in retroflexion and again in NBI. Retroflexion was also performed in the rectum. A localized area of mildly furrowed mucosa was foundin the rectum. This was biopsied with a cold forcepsfor histology. The exam was otherwise without abnormality. Biopsies for histology were taken with a coldforceps from the entire colon for evaluation of microscopic colitis. Impression: - The examined portion of the ileum was normal. Biopsied. - Diverticulosis in the sigmoid colon. - Furrowed mucosa in the rectum. Biopsied. - The examination was otherwise normal. - Biopsies were taken with a cold forceps from the entire colon for evaluation of microscopiccolitis. Recommendation: - Patient has a contact number available for emergencies. The signs and symptoms of potential delayed complications were discussed with thepatient. Return to normal activities tomorrow. Writtendischarge instructions were provided to the patient. - Await pathology results. - Repeat colonoscopy in 10 years for screeningpurposes. - Return to GI office as previously scheduled. Nadeem Johnson NADEEM JOHNSON MD 10/25/2020 12:20:38 PM This report has been signed electronically. Number of Addenda: 0 Note Initiated On: 10/25/2020 11:15 AM Procedure Code(s): --- Professional --- 09454, Colonoscopy, flexible; with biopsy, single or multiple --- Technical --- 06571, Colonoscopy, flexible; with biopsy, single or multiple CPT copyright 2018 [employer]. All rights reserved. The codes documented in this report are preliminary and upon lime sludge mixer reviewmay be revised to meet current compliance requirements. Procedure Date: 10/25/2020 11:15:[address] [place] [address] [id number] us Harshal Shafer MD GI PROCEDURE ORDERABLES Fin al Result * Basic metabolic panel (06/12/2020 5:43 AM EDT) SODIUM 141 133 - 146 mmol/L [facility] CHLORIDE 107 96 - 108 mmol/L [facility] POTASSIUM 4.3 3.3 - 5.1 mmol/L [facility] CO2 23 21 - 35 mmol/L [facility] BUN 12 6 - 19 mg/dL [facility] CREATININE 0.70 0.5 - 1.5 mg/dL [facility] GLUCOSE 94 70 - 99 mg/dL [facility] CALCIUM 8.8 8.4 - 10.3 mg/dL [facility] EGFR 97 >59 mL/min/1.7 3m2 [facility] Comment:Estimated glomerular filtration rate calculated using the CKD-EPI equation. ANION GAP 15 10 - 20 mmol/L [facility] Blood 06/12/2020 5:43 AM EDT 06/12/2020 6:30 AM EDT Myah Merchant DO LAB BLOOD BKR ORDERABLES Fanta l Result Performing Organization Address City/[facility]/ZIP Co de Phone Number [address] [address] * Lipid panel (10/27/2019 5:40 AM EDT) HDL 48 mg/dL [facility] Comment: Interpretation <40 mg/dL: Low HDL cholesterol (major risk factor for CHD) Greater than or equal to 60 mg/dL: High HDL cholesterol ( negative risk factor for CHD) HDL - cholesterol is affected by a number of factors, e.g. smoking, excerise, hormones, sex and age. CHOLESTEROL 167 0 - 240 mg/dL [facility] TRIGLYCERIDES 152 30 - 160 mg/dL [facility] LDL 89 50 - 129 mg/dL [facility] Comment: LDL levels in terms of risk for coronary heart disease: <100 mg/dL: Optimal 100-129 mg/dL: Near or above optimal 130-159 mg/dL: Borderline high 160-189 mg/dL: High >190 mg/dL: Very High CARDIAC RISK RATIO 3.5 3.3 - 4.4 C [facility] Blood 10/27/2019 5:40 AM EDT 10/27/2019 6:58 AM EDT Result [facility] Scarlett Bell MD LAB BLOOD BKR ORDERABLES Fi nal Result Performing Organization Address City/[facility]/ZIP Co de Phone Number [address] [address] * (ABNORMAL) Fecal occult blood, multiple (01/14/2017 8:39 PM EST) FECAL OCC BLD 1 DATE ,017 [facility] Occult bld, stool, #1 Positive(A ) Negative [facility] Stool (Stool) 01/14/2017 8:3 9 PM EST 01/14/2017 8:51 PM EST us Cindy Monahan DO BODY FLUIDS AND STOOLS ORDERA BLES Final Result [address] [address] from Last 3 Months or Most Recently Relevant to Health Maintenance Insurance [place] & B [facility] MEDICARE PART A & B [facility] MEDIC[facility] PART A & B [facility] [place] [id number] MEDICARE PART A & B [place] PART A & [place] [address] [place] [address] Advance Directives For more information, please contact: [phone] (9AM - 5PM [place]/[facility], Thursday-Thursday) * Full Code (Latest Code Status on File) Date Activated Date Inactivated Comments 06/11/2020 7:35 PM Question Answer Comments Code Status Confirmed With: Patient * Full Code Date Activated Date Inactivated Comments 10/26/2019 11:47 PM 06/11/2020 7:35 PM Question Answer Comments Code Status Confirmed With: Patient Code Status Communicated To: Inpatient Attending * Full Code (Confirmed) Date Activated Date Inactivated Comments 01/12/2017 9:06 AM 01/15/2017 9:31 PM Question Answer Comments Code Discussion Comments: patient Care Teams Retail Equipment Associate Relationship Specialty Start Date End Date Harshal Shafer MD [email or web address] PCP - General Family Medicine 01/12/17 Additional Source Comments The information contained in this document represents components of the legal health record. It is not the complete legal health record.[facility]
--- OUTSIDE RECORDS SUMMARY | 2025-01-06 22:06 | XMS_ITS | Encounter Summary ---
Author Organization [facility] Address [address] [place] [address] [place] [address] Phone Care Team Providers Care Account Resolution Specialist Name Role Phone Zee Wang MD Unavailable Rose Schreiber CHECKOUT OPERATOR Unavailable [phone] Ray Phoenix MD Unavailable [phone] Birgit Mcnamara RECEPTIONIST NURSE Unavailable [phone] Vicente Tolentino MD Primary Care Provider Vicente Tolentino MD Unavailable Elsi Torres RN Unavailable Elsi Torres RN Unavailable Elsi Torres RN Unavailable Vicente Tolentino MD Unavailable [phone] Jessica Parks Unavailable Reina Moore RESOLUTION ANALYST Unavailable lizet Encounter Details Date Type Department Care Team (Latest Contact Info) Description 12/07/2020 Transcribe Orders Virtual Department [address] [place] [address] Rose Osei PA-C [address] [place], [place] [phone] Dysphagia, unspecified type (Primary Dx); Gastroesophageal reflux disease, unspecified whether esophagitis present Social History Tobacco Use Types Packs/Day Years [...] Info) Description 12/30/2024 Procedure Pass Event Monitor [address] [place] [address] [place] [address] 01/02/2025 Procedure Pass Echo Lab [address] [place] [address] 01/16/2025 10:30 AM EST Appointment Event Monitor [address] [place] [address] [place] [address] Yana Pichardo PA [address] [place] [address] [email or web address] 03/01/2025 8:30 AM EST Appointment Echo Lab [address] [place] [address] Vicente Tolentino MD [address] [place] [address] [email or web address] documented as of this encounter Visit Diagnoses Diagnosis Dysphagia, unspecified type- Primary Gastroesophageal reflux disease, unspecified whether esophagitis present documented in this encounter Care Teams Account Resolution Specialist Relationship Specialty Start Date End Date Vicente Tolentino MD [address] [place] [address], [address] [place] [address] [email or web address] PCP - General Family Medicine 01/12/17 Zee Wang MD [address] [place] [address], [address] [place] [address] Historical LMR Provider 12/02/16 2 Rose Schreiber CHECKOUT OPERATOR [address] [place] [address] Historical LMR Provider 12/02/16 2 Ray Phoenix MD [address] [place] [address] Historical LMR Provider 12/02/16 2 Birgit Mcnamara CNP [address] [place] [address], [address] [place] [address] Historical LMR Provider 12/02/16 Vicente Tolentino MD [address] [place] [address] Insurance Assigned Provider 03/24/21 07/05/22 Elsi Torres RN [address] [place] [address] PHCM Supervisor Aircraft Maintenance 05/14/21 10/08/21 Elsi Torres RN [address] [place] [address] PHCM Supervisor Aircraft Maintenance 05/15/21 05/19/21 Elsi Torres RN [address] [place] [address] PHCM Supervisor Aircraft Maintenance 05/14/21 04/16/23 Vicente Tolentino MD [address] [place] [address] [email or web address] Insurance Assigned Provider 08/23/22 10/25/22 Jessica Parks [address] [place] [address] [email or web address] PHCM Community Health Worker 09/09/22 12/08/22 Reina Moore LCSW [address] [place] [address] [email or web address] PHC Accounting System Expert 09/12/22 09/22/22 documented as of this encounter Additional Source Comments The information contained in this document represents components of the legal health record. It is not the complete legal health record.[facility]
--- OUTSIDE RECORDS SUMMARY | 2025-01-06 22:06 | XMS_ITS | Encounter Summary ---
Author Organization [facility] Address [address] [place] [address] [place] [address] Phone Care Team Providers Care Senior Category Manager Name Role Phone eZe Wang MD Unavailable [phone] Rose Schreiber MATTRESS PACKER Unavailable [phone] Ray Phoenix MD Unavailable [phone] Birgit Mcnamara ASSOCIATE DEAN OF WOMEN Unavailable [phone] Vicente Tolentino MD Primary Care Provider Vicente Tolentino MD Unavailable [phone] Elsi Torres RN Unavailable Elsi Torres RN Unavailable Elsi Torres RN Unavailable Vicente Tolentino MD Unavailable Jessica Parks Unavailable Reina Moore SAMPLER FIRST Unavailable lizet Encounter Details Date Type Department Care Team (Late st Contact Info) Description 10/25/2020 Procedure Pass [facility] Admitting Dept Virtual Department [address] [place] [address] Social History Tobacco Use Types Packs/Day Years [...] Info) Description 12/30/2024 Procedure Pass Event Monitor [address] [place] [address] [place] [address] 01/02/2025 Procedure Pass Echo Lab [address] [place] [address] 01/16/2025 10:30 AM EST Appointment Event Monitor [address] [place] [address] [place] [address] Yana Pichardo PA [address] [place], [place] [phone] [email or web address] 03/01/2025 8:30 AM EST Appointment Echo Lab [address] [address] Vicente Tolentino MD [address] [place] [phone] [email or web address] documented as of this encounter Visit Diagnoses Not on filedocumented in this encounter Care Teams Senior Category Manager Relationship Specialty Start Date End Date Vicente Tolentino MD [address] [place] [address], [address] [place] [address] [email or web address] PCP - General Family Medicine 01/12/17 Zee Wang MD [address] [place] [address], [address] [place] [address] Historical LMR Provider 12/02/16 2 Rose Schreiber, MATTRESS PACKER [address] [place] [address] Historical LMR Provider 12/02/16 2 Ray Phoenix MD [address] [place] [address] Historical LMR Provider 12/02/16 2 Birgit Mcnamara CNP [address] [place] [address], [address] [place] [address] [email or web address] Historical LMR Provider 12/02/16 Vicente Tolentino MD [address] [place] [address] Insurance Assigned Provider 03/24/21 07/05/22 Elsi Torres RN [address] [place] [address] [facility] Claim Professional 05/14/21 10/08/21 Elsi Torres RN [address] [place] [address] [facility] Claim Professional 05/15/21 05/19/21 Elsi Torres RN [address] [place] [address] [facility] Claim Professional 05/14/21 04/16/23 Vicente Tolentino MD [address] [place] [address] Insurance Assigned Provider 08/23/22 10/25/22 Jessica Parks [address] [place] [address] PHCM Community Health Worker 09/09/22 12/08/22 Reina Moore LCSW [address] [place] [address] [email or web address] PHC Construction Lineman 09/12/22 09/22/22 documented as of this encounter Additional Source Comments The information contained in this document represents components of the legal health record. It is not the complete legal health record.[facility]
--- OUTSIDE RECORDS SUMMARY | 2025-01-06 22:06 | XMS_ITS | Encounter Summary ---
Author Organization [facility] Address [address] [place] [address] [place] [address] Phone Care Team Providers Care Foster Care Worker Name Role Phone Zee Wang MD Unavailable [phone] Rose Schreiber INDUSTRIAL GAS FITTER HELPER Unavailable [phone] Ray Phoenix MD Unavailable Birgit Mcnamara CNP Unavailable [phone] Vicente Tolentino MD Primary Care Provider Vicente Tolentino MD Unavailable [phone] Vicente Tolentino MD Unavailable [phone] Vicente Tolentino MD Unavailable Elsi Torres RN Unavailable Elsi Torres RN Unavailable Elsi Torres RN Unavailable Vicente Tolentino MD Unavailable [phone] Jessica Parks Unavailable Reina Moore LCSW Unavailable lizet Encounter Details Date Type Department Care Team (Late st Contact Info) Description 01/12/2017 Procedure Pass [facility], Ct Scan - [address] [address] Social History Tobacco Use Types Packs/Day Years Used Date Smoking Tobacco: Never Smokeless Tobacco: Never Alcohol Use Standard Drinks/Week Comments No 0 (1 standard drink = 0.6 oz pure alcohol) 1 drink in the past year in April Comments Unknown Sex and Gender Information Value Date Recorded Sex Assigned at Female 02/23/2017 9:38 AM EST Legal Sex Female 9:42 PM EDT Gender Identity Female 04/13/2017 4:37 PM EST Sexual Orientation Straight 10/26/2019 11 :53 PM EDT documented as of this encounter Plan of Treatment Upcoming Encounters Date Type Department Care Team (Late st Contact Info) Description 12/30/2024 Procedure Pass Event Monitor [address] [place] [address] [place] [address] 01/02/2025 Procedure Pass Echo Lab [address] [place] [address] 01/16/2025 10:30 AM EST Appointment Event Monitor [address] [place] [address] [place] [address] Yana Pichardo PA [address] [place] [address] [email or web address] 03/01/2025 8:30 AM EST Appointment Echo Lab [address] [place] [address] Vicente Tolentino MD [address] [place] [address] [email or web address] documented as of this encounter Visit Diagnoses Not on filedocumented in this encounter Additional Health Concerns Infection Onset Date Last Indicated Resolved Time CoV-Risk Comment:COVID-19 test pending 05/20/2019 05/20/2019 06/03/2019 1:24 AM EDT CoV-Risk Comment:Referred for COVID-19 testing 06/27/2019 07/04/2019 07/18/2019 1:24 AM E DT documented as of this encounter Care Teams Foster Care Worker Relationship Specialty Start Date End Date Vicente Tolentino MD [address] [place] [address], [address] [place] [address] [email or web address] PCP - General Family Medicine 01/12/17 Zee Wang MD [address] [place] [address], [address] [place] [address] Historical LMR Provider 12/02/16 2 Rose Schreiber NP [address] [place] [address] Historical LMR Provider 12/02/16 2 Ray Phoenix MD [address] [place] [address] Historical LMR Provider 12/02/16 2 Birgit Mcnamara CNP [address] [place] [address], [address] [place] [address] [email or web address] Historical LMR Provider 12/02/16 Vicente Tolentino MD [address] [place] [address] Insurance Assigned Provider 07/18/18 11/27/18 Vicente Tolentino MD [address] [place] [address] Insurance Assigned Provider 01/22/19 05/25/19 Vicente Tolentino MD [address] [place] [address] [email or web address] Insurance Assigned Provider 03/24/21 07/05/22 Elsi Torres RN [address] [place] [address] [email or web address] PHCM Bindery Chief 05/14/21 10/08/21 Elsi Torres RN [address] [place] [address] [email or web address] Bindery Chief 05/15/21 05/19/21 Elsi Torres RN [address] [place] [address] [email or web address] Bindery Chief 05/14/21 04/16/23 Vicente Tolentino MD [address] [place] [address] [email or web address] Insurance Assigned Provider 08/23/22 10/25/22 Jessica Parks [address] [place] [address] [email or web address] PHCM Community Health Worker 09/09/22 12/08/22 Reina Moore LCSW [address] [place] [address] [email or web address] PHCM Cloth Printing Inspector 09/12/22 09/22/22 documented as of this encounter Additional Source Comments The information contained in this document represents components of the legal health record. It is not the complete legal health record.[facility]
--- OUTSIDE RECORDS SUMMARY | 2025-01-06 22:06 | XMS_ITS | Encounter Summary ---
Author Organization [facility] Address [address] [place] [address] [place] [address] Phone Care Team Providers Care Butter Melter Name Role Phone Zee Wang MD Unavailable [phone] Rose Schreiber AOC OPERATIONS INTELLIGENCE CHIEF Unavailable [phone] Ray Phoenix MD Unavailable [phone] Birgit Mcnamara CNP Unavailable [phone] Vicente Tolentino MD Primary Care Provider Vicente Tolentino MD Unavailable [phone] Vicente Tolentino MD Unavailable [phone] Vicente Tolentino MD Unavailable Elsi Torres RN Unavailable Elsi Torres RN Unavailable Elsi Torres RN Unavailable Vicente Tolentino MD Unavailable [phone] Jessica Parks Unavailable Reina Moore LCSW Unavailable lizet Encounter Details Date Type Department Care Team (Late st Contact Info) Description 01/12/2017 Procedure Pass [facility], Ct Scan - [address] [address] Social History Tobacco Use Types Packs/Day Years [...] Info) Description 12/30/2024 Procedure Pass Event Monitor [address] [place] [address] [place] [address] 01/02/2025 Procedure Pass Echo Lab [address] [place] [address] 01/16/2025 10:30 AM EST Appointment Event Monitor [address] [place] [address] [place] [address] Yana Pichardo PA [address] [place] [address] [email or web address] 03/01/2025 8:30 AM EST Appointment Echo Lab [address] [place] [address] Vicente Tolentino MD [address] [place] [address] [email or web address] documented as of this encounter Visit Diagnoses Not on filedocumented in this encounter Additional Health Concerns Infection Onset Date Last Indicated Resolved Time CoV-Risk Comment:COVID-19 test pending 05/20/2019 05/20/2019 06/03/2019 1:24 AM EDT CoV-Risk Comment:Referred for COVID-19 testing 06/27/2019 07/04/2019 07/18/2019 1:24 AM E DT documented as of this encounter Care Teams Butter Melter Relationship Specialty Start Date End Date Vicente Tolentino MD [address] [place] [address], [address] [place] [address] [email or web address] PCP - General Family Medicine 01/12/17 Zee Wang MD [address] [place] [address], [address] [place] [address] Historical LMR Provider 12/02/16 2 Rose Schreiber NP [address] [place] [address] Historical LMR Provider 12/02/16 2 Ray Phoenix MD [address] [place] [address] Historical LMR Provider 12/02/16 2 Birgit Mcnamara CNP [address] [place] [address], [address] [place] [address] [email or web address] Historical LMR Provider 12/02/16 Vicente Tolentino MD [address] [place] [address] Insurance Assigned Provider 07/18/18 11/27/18 Vicente Tolentino MD [address] [place] [address] Insurance Assigned Provider 01/22/19 05/25/19 Vicente Tolentino MD [address] [place] [address] [email or web address] Insurance Assigned Provider 03/24/21 07/05/22 Elsi Torres RN [address] [place] [address] [email or web address] PHCM Shade Matcher 05/14/21 10/08/21 Elsi Torres RN [address] [place] [address] [email or web address] 05/15/21 05/19/21 Elsi Torres RN [address] [place] [address] [email or web address] 05/14/21 04/16/23 Vicente Tolentino MD [address] [place] [address] [email or web address] Insurance Assigned Provider 08/23/22 10/25/22 Jessica Parks [address] [place] [address] [email or web address] PHCM Community Health Worker 09/09/22 12/08/22 Reina Moore LCSW [address] [place] [address] [email or web address] PHCM Compensation Intern 09/12/22 09/22/22 documented as of this encounter Additional Source Comments The information contained in this document represents components of the legal health record. It is not the complete legal health record.[facility]
--- OUTSIDE RECORDS SUMMARY | 2025-01-06 22:06 | XMS_ITS | Encounter Summary ---
Author Organization [facility] Address [address] [facility] [address] [place] [address] Phone Care Team Providers Care Ferryboat Ticket Taker Name Role Phone Vicente Tolentino MD Primary Care Provider [phone] Reason for Referral * Outpatient Procedure - New Request Specialty Diagnoses / Procedures Referred By Genia lopez Referred To Contact Diagnoses Dyspnea, unspecified type Procedures Adult Echo TTE Vicente Tolentino MD [address] [place] [address] Phone: tel: fax: [email or web address] Referral ID Status Reason Start Date Expiration Date V isits Requested Visits Authorized [id number] New Request 01/02/2025 1 1 Encounter Details Date Type Department Care Team (Latest Contact Info) Description 01/02/2025 Transcribe Orders [facility] [address], [address] [place] [address] Patel Sweet [email or web address] Dyspnea, unspecified type (Primary Dx) Social History Tobacco Use Types Packs/Day Years [...] Info) Description 12/30/2024 Procedure Pass Event Monitor [address] [place] [address] [place] [address] 01/02/2025 Procedure Pass Echo Lab [address] [place] [address] 01/16/2025 10:30 AM EST Appointment Event Monitor [address] [place] [address] [place] [address] Yana Picahrdo PA [address] [place] [address] [email or web address] 03/01/2025 8:30 AM EST Appointment Echo Lab [address] [place] [address] Vicente Tolentino MD [address] [place] [address] [email or web address] Scheduled Orders Name Type Priority Associated Diagnoses Orde r Schedule Adult Echo TTE Echocardiography Routine Dyspnea, unspecified type Expected: 01/02/2025, Expires: 01/02/2026 documented as of this encounter Visit Diagnoses Diagnosis Dyspnea, unspecified type- Primary documented in this encounter Additional Health Concerns Assessment Noted Time PHQ-2 Depression Total Score: 1 06/20/19 22 10:49 AM EDT documented as of this encounter Care Teams Ferryboat Ticket Taker Relationship Specialty Start Date End Date Vicente Tolentino MD [email or web address] PCP - General Family Medicine 01/12/17 documented as of this encounter Additional Source Comments The information contained in this document represents components of the legal health record. It is not the complete legal health record.[facility]
[2025-01-06 22:17] LABS: Resp Syncy Virus RNA Qual PCR NEGATIVE (Negative); SARS COV2 PCR INHOUSE NEGATIVE (Negative)
[2025-01-06 23:10] LABS: Iron 60 mcg/dL (30-160); Percent Iron Saturation 39 % (15-50); Total Iron Binding Capacity 153 mcg/dL (228-428); Unsaturated Iron Binding 93 ug/dL
[2025-01-06] MEDS: diazePAM 10 MG/2 ML CARTRIDGE 2.5 MG IVPUSH (23:25)
[2025-01-06 23:37] LABS: OBS Int Ctl Valid YES; OBS1 NEGATIVE (NEGATIVE)
[2025-01-06] MEDS: iohexoL 350 MG/ML 100 ML INFUS..BTL IV (23:51)
[2025-01-07] VITALS (10 sets, daily range): BP systolic 103–139; BP diastolic 64–82; PULSE 87–104; RESP 17–18; TEMP 36.7; O2SAT 100
[2025-01-07 03:01] LABS: Appearance Urine Clear; Glucose Urine UA Negative (Negative); PH 7.0 (5.0-9.0); Specific Gravity - Urine >= 1.030 (1.005-1.025); UMIC TRIGGER UACC YES
[2025-01-07 03:10] LABS: Cannabinoid Screen Urine Not Detected (Not Detect)
[2025-01-07 03:27] LABS: UACC Culture Trigger YES
[2025-01-07] MEDS: Lactated Ringers 1,000 ML 999 ML IV ×2 (03:44→04:59)
== END 2025-01-07 06:51 | disposition home or self-care (01) ==
PROVIDERS: Emergency Provider Emergency Medicine; PCP Family Medicine
DX: I95.1 Orthostatic hypotension (principal); R53.1 Weakness; R42 Dizziness and giddiness; R19.7 Diarrhea, unspecified; R51.9 Headache, unspecified; D64.9 Anemia, unspecified; Z51.81 Encounter for therapeutic drug level monitoring; R10.22 Pelvic and perineal pain left side; Z79.899 Other long term (current) drug therapy; Z03.818 Encounter for observation for suspected exposure to other biological agents ruled out
CPT/HCPCS: 36415; 70450; 71260; 72125; 74177; 80048; 80076; 80307; 81001; 81003; 82272; 82947; 83540; 83605; 84443; 84484; 85025; 87086; 87637; 93005; 96365; 96366; 96375; 99285; J2405; J3360; J7120; Q9967

== ENCOUNTER → 2025-01-06 21:14 | Outpatient (BNV) | payer MEDICARE, MEDICAID, SELFPAY | PROVIDERS: Emergency Provider Emergency Medicine; PCP Family Medicine; Visit Provider Internal Medicine | DX: R94.31 Abnormal electrocardiogram [ECG] [EKG] (principal); R07.9 Chest pain, unspecified | CPT/HCPCS: 93010 ==

== ENCOUNTER → 2025-01-06 21:23 | Outpatient (BNV) | payer MEDICARE, MEDICAID, SELFPAY | PROVIDERS: Emergency Provider Emergency Medicine; PCP Family Medicine; Visit Provider Radiology Diagnostic Radiology | DX: K76.0 Fatty (change of) liver, not elsewhere classified (principal); D64.9 Anemia, unspecified; R63.4 Abnormal weight loss; M54.2 Cervicalgia; R51.9 Headache, unspecified; Z04.3 Encounter for examination and observation following other accident | CPT/HCPCS: 70450; 72125 ==